=== PATIENT | female | born 1960 | race Caucasian/White ===

== ENCOUNTER 2018-02-19 12:00 | Outpatient (RCR) | payer BC, SELFPAY ==
--- NOTE | 2018-02-02 13:18 | HP.PTEVAL_ITS ---
Patient's Visit Information RACHELL VELASCO is a 57 year old F referred to Physical Therapy by Ck Baumann MD with a diagnosis of Facial palsy R sided. Date of Evaluation: 01/01/18 Physical Therapist: Julian Dunlap - Visit Plan Frequency: 2x /Week Duration: 6 Weeks Plan: Start with facial movements with increased repetitions. Add in direct current ES to increase muscle contraction of R side of facial musculature. Pt. given HEP to start. Pt. would like to start with HEP and follow up with PT if needed. - Subjective Subjective: Pt. is here today for her initial evaluation with diagnosis with facial palsy. Pt. reports starting to have issues at the beginning of the year. Pt. reports difficulty with closing her eye, raising her eye brow, smiling, slight problem with chewing on R side. Pt. reports draining for R eye at times, but has started using gel at night and eye drops during the day. Pt. reports that her symptoms have improved since initial onset, but slowly. Pt. saw her neurologist who recommended PT with etim and and MRI. Pt. reports no pain with any movements or with onset of symptoms. Pt. has trialed some massage to her R side of her face and did trial prednisone. Pt. has not trialed any exercises at this point in time. Pt. is hopeful to regain all movements with her face. - Objective POSTURE: Pt. has normal cervical spine posture. Pt. has normal facial positioning at rest. She has slight rounded shoulders and slight FH positioning. PALPATION: Pt. has no tenderness throughout neck, face, TMJ to palaption. NEUROLOGICAL: Pt. reports normal sensation to light and sharp touch throughout face and neck. Pt. has 2+ biceps and triceps DTR bilaterally. ROM: PT. has full neck ROM without changes of symptoms. Pt. has diffculty with smiling, lip elevation, eye brow elevation, eye opening and closing, lip puchering only on R side. Pt. does have muscle contraction, but not full motion when compared to L side. MMT: Pt. has marked muscle weakness in R side of facial musculature effecting her ability to smile, frown, close eye, nad open her mouth. - Goals Goal 1:: Pt. to be I with HEP. Goal Time Frame: 4-6 Weeks Goal 2:: Pt. to have symmetrical smile, mouth opening, frowning. Goal Time Frame: 4-6 Weeks Goal 3:: Pt. to have symmtrical eye closing and opening allowing for proper hydration of R eye. Goal Time Frame: 4-6 Weeks Goal 4:: Pt. to resume all activities without limitations. - Rehabilitation Potential Physical Therapy Diagnosis: Pt. has signs and symptoms consistent of R sided facial palsy. Pt. has no pain, but marked R sided facial weakness. Pt. would benefit from PT to increase muscle activation, and strength allowing for complete all of all facial movements. Rehabilitation Potential: Good - Anticipated Interventions Patient/Client Instruction: Educate patient on: Condition, Plan of Care, Risk Factors, Benefits of Fitness Program For the Purpose of:: To improve decision making, To facilitate caregiver knowledge, To improve self management, To prevent re-injury, To improve ability to perform tasks related to life management, To improve tolerance to ADL's Therapeutic Exercise to Include: Strength training, Body mechanics, Postural training, Flexibilty training For the Purpose of:: To decrease pain, To increase ROM, To improve nutrient delivery to tissue, To increase oxygenation perfusion, To improve muscle performance and motor function, To improve performance and independence with ADL 's, To improve health of tissue, To decrease soft tissue restriction Other electric stimulation: Yes - direct current For the Purpose of:: To decrease pain, To decrease swelling/inflammation, To improve muscle performance and motor function Thank you for the opportunity to evaluate your patient. For Medicare and Medicare HMO plans, please review the plan of care and approve it. It will need to be FAXED BACK to us at [phone] for Medicare purposes. Please let me know if there are questions or concerns regarding this plan of care. Physician Signature: Date:
--- NOTE | 2018-02-17 07:38 | HP.PTREVAL_ITS ---
Ck Baumann MD, It has been my pleasure to treat RACHELL VELASCO over the last 2 visits for Facial palsy R sided. Please see the progress note below for an update on the physical therapy plan of care! Subjective: Pt. reports being compliant with all of her facial exercises. Pt. reports minimal change with exercises and now wants to trial some of the muscle stim to see if this will assist with re activation of facial musculature. Objective/Function: Pt. tolerated alll PT. pt. had improved contraction with biofeed back this date,but minimal improvement post. Pt. reports no pain with trials. Plan Plan: Pt. to schedule more consistently to trial stim mroe often to determine if better outcome will occur. pt. consents. Goals Goal 1:: Pt. to be I with HEP. Goal Time Frame: 4-6 Weeks Goal Progress: Progressing Goal 2:: Pt. to have symmetrical smile, mouth opening, frowning. Goal Time Frame: 4-6 Weeks Goal Progress: Progressing Goal 3:: Pt. to have symmtrical eye closing and opening allowing for proper hydration of R eye. Goal Time Frame: 4-6 Weeks Goal Progress: Progressing Goal 4:: Pt. to resume all activities without limitations. Goal Progress: Progressing Anticipated Interventions Patient/Client Instruction: Educate patient on: Condition, Plan of Care, Risk Factors, Benefits of Fitness Program For the Purpose of:: To improve decision making, To facilitate caregiver knowledge, To improve self management, To prevent re-injury, To improve ability to perform tasks related to life management, To improve tolerance to ADL's Therapeutic Exercise to Include: Strength training, Body mechanics, Postural training, Flexibilty training For the Purpose of:: To decrease pain, To increase ROM, To improve nutrient delivery to tissue, To increase oxygenation perfusion, To improve muscle performance and motor function, To improve performance and independence with ADL 's, To improve health of tissue, To decrease soft tissue restriction Other electric stimulation: Yes - direct current For the Purpose of:: To decrease pain, To decrease swelling/inflammation, To improve muscle performance and motor function Please do not hesitate to contact me at [phone] by phone or Fax: if you have questions or concerns regarding this new plan of care! Sincerely, Julian Dunlap
--- NOTE | 2018-08-14 10:46 | HP.PT.NRP ---
HP - Discharge Summary (1) - Patient Information RACHELL VELASCO was seen in my office for initial evaluation on 01/01/18. The following Plan of Care was established for this patient: Initial Frequency: 2x /Week Initial Duration: 6 Weeks - Anticipated Interventions Patient/Client Instruction: Educate patient on: Condition, Plan of Care, Risk Factors, Benefits of Fitness Program For the Purpose of:: To improve decision making, To facilitate caregiver knowledge, To improve self management, To prevent re-injury, To improve ability to perform tasks related to life management, To improve tolerance to ADL's Therapeutic Exercise to Include: Strength training, Body mechanics, Postural training, Flexibilty training For the Purpose of:: To decrease pain, To increase ROM, To improve nutrient delivery to tissue, To increase oxygenation perfusion, To improve muscle performance and motor function, To improve performance and independence with ADL's, To improve health of tissue, To decrease soft tissue restriction Other electric stimulation: Yes - direct current For the Purpose of:: To decrease pain, To decrease swelling/inflammation, To improve muscle performance and motor function This patient was last seen in our office 02/19/18. Pertinent comments regarding their Physical therapy will appear below: Pt. was seen for her facial weakness after bells palsy. Pt. was seen for 3 visits and wanted to trial exercises on her own. Pt. has yet to return to PT and will be DC from PT at this point in time. At this point I will be discontinuing this patient from physical therapy. I would be happy to see this patient again in the future if found appropriate by the physician. Thank you! JING LaneT
== END 2018-02-19 19:00 | disposition home or self-care (01) ==
LOC: PT 12:00
PROVIDERS: Family Provider Family Medicine; PCP Family Medicine; Visit Provider Psychiatry & Neurology Neurology
DX: G51.0 Bell's palsy (principal)
CPT/HCPCS: 97110; 97112; 97162

== ENCOUNTER → 2020-03-03 12:11 | Outpatient (CLI) | payer BC, SELFPAY | PROVIDERS: PCP Family Medicine; Referring Provider Nurse Practitioner Family; Visit Provider Nurse Practitioner Family | DX: N89.8 Other specified noninflammatory disorders of vagina (principal) | CPT/HCPCS: 36415; 86695; 86696 ==

== ENCOUNTER → 2020-11-30 | Outpatient (CLI) | payer BC, SELFPAY ==
[2017-08-16 11:29] VITALS: BMI 41.7
== END | disposition home or self-care (01) ==
LOC: LABSPEC 10:32
PROVIDERS: PCP Family Medicine; Referring Provider Nurse Practitioner Family; Visit Provider Nurse Practitioner Family
DX: B37.3 Candidiasis of vulva and vagina (principal)

== ENCOUNTER → 2022-07-25 | Outpatient (CLI) | payer BC, SELFPAY | END | disposition home or self-care (01) | LOC: LABSPEC 09:56 | PROVIDERS: PCP Family Medicine; Referring Provider Nurse Practitioner Family; Visit Provider Nurse Practitioner Family | DX: A60.00 Herpesviral infection of urogenital system, unspecified (principal) | CPT/HCPCS: 87070; 87205 ==

== ENCOUNTER → 2022-09-06 | Outpatient (CLI) | payer BC, SELFPAY ==
[2022-09-12 17:36] LABS: HPV APTIMA, High Risk Negative (Negative)
== END | disposition home or self-care (01) ==
LOC: LABSPEC 14:38
PROVIDERS: PCP Family Medicine; Visit Provider Student in an Organized Health Care Education/Training Program
DX: Z12.4 Encounter for screening for malignant neoplasm of cervix (principal)
CPT/HCPCS: 87624; 88175; G0145

== ENCOUNTER 2022-10-01 18:23 | Emergency (ER) | payer BC, SELFPAY ==
[2022-10-01 18:24] VITALS: BP 203/87; PULSE 95; RESP 18; TEMP 36.6; O2SAT 100; BMI 59.5
[2022-10-01 18:51] VITALS: BP 134/93; PULSE 107; RESP 20; O2SAT 96
--- NOTE | 2022-10-01 19:36 | EDS_ITS ---
HPI History of Present Illness Chief Complaint: General Illness Informant: patient Onset/Context/Timing Onset: Hours (2) Context: Gradual Onset Timing: Continuous Quality: Lightheaded Location: Generalized Worsened by: Nothing Relieved by: Nothing Narrative Narrative: Patient presents with chest pain and lightheadedness that began approximately 2 hours prior to arrival. Patient states it came on gradually. Patient states she feels lightheaded all over. Patient states that she has a dull pain in her chest. Patient states nothing makes it better nothing makes it worse. Patient denies any nausea or vomiting. Patient denies any fevers or chills. Patient denies any shortness of breath or cough. Patient denies any diaphoresis. Patient denies any palpitations. [facility] Medical History Hypertension Home Medications ibuprofen 100 mg tablet (Advil) PO 08/16/17 [History Last Taken Unknown] acyclovir 800 mg tablet 800 mg PO TID 10/01/22 [History Last Taken Unknown] Allergy/AdvReac Type Severity Reaction Status Date / Time sulfamethoxazole Allergy Severe Unknown Verified 10/01/22 18:23 [From Bactrim] trimethoprim [From Bactrim] Allergy Severe Unknown Verified 10/01/22 18:23 Social History Smoking Status: Never smoker ROS ROS ED Constitutional Constitutional ED: Denies chills or fever(s) Eyes Eyes: Denies blurry vision or change in vision ENT ENT ED: Denies rhinorrhea or sore throat Cardiovascular Cardiovascular: Reports chest pain; Denies palpitations Respiratory/Chest Respiratory/Chest: Denies cough or dyspnea Gastrointestinal Gastrointestinal: Denies nausea or vomiting Genitourinary Genitourinary ED: Denies dysuria or hematuria Musculoskeletal Musculoskeletal: Reports back pain; Denies neck pain Integumentary Denies abscess or rash Neurologic Neurologic: Denies headache(s) or weakness Allergic/Immunologic Allergic/Immunologic ED: Denies mouth swelling or urticaria EXAM Physical Exam Const Vital Signs: 10/01/22 18:24 10/01/22 18:51 10/01/22 19:52 Temperature 97.8 F Temperature Source Temporal Pulse Rate 95 107 H Respiratory Rate 18 20 H Blood Pressure 203/87 H 134/93 H Blood Pressure Mean 125 106 Pulse Ox 100 96 Oxygen Delivery Method Room Air Room Air Room Air 10/01/22 21:16 Temperature Temperature Source Pulse Rate 76 Respiratory Rate 18 Blood Pressure 148/77 H Blood Pressure Mean 100 Pulse Ox 95 Oxygen Delivery Method Room Air Positive well nourished, well developed and obese General Appearance ED: well developed and NAD Nutritional Appearance: obese HEENT Reports moist mucous membranes Neck supple and no JVD Resp normal respiratory effort and clear to auscultation bilaterally Cardio regular rate, regular rhythm and no murmurs GI normal to inspection, nondistended, normoactive bowel sounds and non-tender Palpation: soft Extremity normal to inspection General Extremety ED: Negative for edema or tenderness General Extremity: Negative for edema Neuro oriented x3, CN's II-XII intact bilaterally and no sensory deficits noted Sensorium / Orientation: alert Motor Exam: strength 5/5 throughout Psych mental status grossly normal Skin no rashes or lesions noted MDM MDM MDM Narrative Medical decision making narrative: Differential diagnosis includes cardiac ischemia, cardiac dysrhythmia, pneumonia, pneumothorax, infection, dehydration, electrolyte abnormality, and pulmonary embolus. EKG will be obtained to assess for cardiac dysrhythmia and cardiac ischemia. CBC will be obtained to assess for leukocytosis and anemia. Basic metabolic profile will be obtained to assess for electrolyte abnormality and renal function. High-sensitivity troponin will be obtained to assess for cardiac ischemia. 2-hour repeat high-sensitivity troponin will be obtained to further assess cardiac ischemia. D-dimer will be obtained to assess for pulmonary embolism. Chest x-ray will be obtained to assess for pneumonia, cardiomegaly, and congestive heart failure. Lab Data Lab results narrative: CBC was reviewed and there is a slight leukocytosis of 11.8. Basic metabolic profile was reviewed and showed a mild hypokalemia of 3.3. BUN was slightly elevated at 23. Glucose was 170. High-sensitivity troponin was reviewed and was normal at 8. D-dimer was reviewed and was normal at 0.46. 2-hour repeat high-sensitivity troponin was reviewed and was normal at 12. Labs: Laboratory Results - last 24 hr 10/01/22 10/01/22 10/01/22 19:50 19:50 19:50 WBC 11.8 H RBC 4.32 Hgb 12.5 Hct 40.9 MCV 94.7 MCH 28.9 MCHC 30.6 L RDW Std Deviation 49.1 H RDW Coeff of Chao 14.0 Plt Count 425 MPV 11.4 Immature Gran % (Auto) 0.500 Neut % (Auto) 65.9 Lymph % (Auto) 24.3 [place] % (Auto) 6.8 Eos % (Auto) 2.0 Baso % (Auto) 0.5 Absolute Neuts (auto) 7.8 H Absolute Lymphs (auto) 2.87 Nucleated RBC % 0 D-Dimer Quant (PE/DVT) 0.46 Sodium 140 Potassium 3.3 L Chloride 102 Carbon Dioxide 28.0 Anion Gap 10 BUN 23 H Creatinine 0.70 Estim Creat Clear Calc 166.19 Est GFR (MDRD) Af Amer 110 Est GFR (MDRD) Non-Af 91 BUN/Creatinine Ratio 33.0 H Glucose 170 H Calcium 9.5 Troponin I High Sens 8 10/01/22 22:00 WBC RBC Hgb Hct MCV MCH MCHC RDW Std Deviation RDW Coeff of Chao Plt Count MPV Immature Gran % (Auto) Neut % (Auto) Lymph % (Auto) [place] % (Auto) Eos % (Auto) Baso % (Auto) Absolute Neuts (auto) Absolute Lymphs (auto) Nucleated RBC % D-Dimer Quant (PE/DVT) Sodium Potassium Chloride Carbon Dioxide Anion Gap BUN Creatinine Estim Creat Clear Calc Est GFR (MDRD) Af Amer Est GFR (MDRD) Non-Af BUN/Creatinine Ratio Glucose Calcium Troponin I High Sens 12 Radiography Diagnostic Testing: Clinical Impression(s) from Imaging Studies Chest X-Ray 10/01/22 19:58 IMPRESSION: 1. No evidence of acute cardiopulmonary process sequelae of old granulomatous disease present. Electronically Signed: Khoa Watts MD at 20:10 EST , Portable 1 view chest x-ray was obtained. On my independent interpretation, lung oconnor are clear. There is normal cardiac silhouette. Bony thorax is normal. There is no acute process noted. Radiologist also interpreted the x- ray and agrees. EKG Initial EKG: Attestation: I personally reviewed and interpreted this EKG as follows: Interpretation: Sinus Rhythm (96) and Non-Specific ST Changes Comments: EKG was obtained. On my interpretation, it showed a normal sinus rhythm with a rate of 96. VA interval, QRS interval, and QTc intervals were all normal. [place] was normal. There are no acute ST or T wave changes. Prior EKG tracings: not available for review Prior: No Prior Treatment and Re-Evaluation Narrative: Patient was given a dose of aspirin here. Patient was advised of her findings. Patient is feeling better on reevaluation. Patient has a HEART score of 3. Patient was advised that this is low risk for acute cardiac event. Patient was instructed to follow-up with her primary care physician in 5 to 7 days for reevaluation. Patient was instructed return if worse in any way. Patient understood and was agreeable with the plan. All questions were answered. Discharge Plan Triage Chief Complaint: General Illness ED Provider: Luis Felipe Fischer Dx/Rx/DC Orders Clinical Impression: Chest pain, Lightheadedness Instructions: ED Chest Pain, Uncertain Cause Prescriptions: No Action ibuprofen 100 mg tablet 100 mg tablet PO acyclovir 800 mg tablet 800 mg PO TID Primary Care Provider: Casandra Parker Referrals: Casandra Parker MD [Primary Care Provider] - 5-7 Days Disposition Disposition: Home, Self Care
--- NOTE | 2022-10-01 19:42 | EKG12_ITS ---
Test Reason : DYSRHYTHMIA Blood Pressure : / mmHG Vent. Rate : 096 BPM Atrial Rate : 096 BPM P-R Int : 126 ms QRS Dur : 100 ms QT Int : 362 ms P-R-T Axes : 057 045 039 degrees QTc Int : 457 ms Normal sinus rhythm Nonspecific ST abnormality Abnormal ECG Confirmed by MANA RICHARDS, DAWIT ([id number]), sports editor MARIA L CARRERO ([id number]) on 10/02/2022 1:49:31 PM Referred By: COURTNEY Confirmed By:DAWIT ADAIR MD
[2022-10-01] MEDS: Aspirin 81 MG TAB.CHEW 324 MG PO (19:47)
[2022-10-01 19:58] LABS: Absolute Lymphocyte Count 2.87 X10^3/uL (0.83-4.51); Absolute Neutrophil Count 7.8 X10^3/uL (2.0-7.7); Basophil# 0.06 X10^3/uL; Basophil% 0.5 % (0-1); Eosinophil# 0.23 X10^3/uL; Hematocrit 40.9 % (37-47); Hemoglobin 12.5 g/dL (12.0-15.0); Lymphocyte # 2.87 X10^3/ul (0.83-4.51); Lymphocyte % 24.3 % (19-41); Mean Corp Hgb Conc 30.6 g/dL (32-36); Mean Corpuscular Hgb 28.9 pg (27.0-32.0); Mean Corpuscular Volume 94.7 fL (81-99); Mean Platelet Vol. 11.4 fl (6.2-12.0); Monocyte% 6.8 % (0-10); NRBC Flagged by Analyzer 0 % (0-5); Neutrophil # 7.77 X10^3/uL (2.7-7.7); Neutrophil % 65.9 % (47-70); Platelet Count 425 K/mm3 (150-450); RBC Distribution Width SD 49.1 fl (35.1-43.9); Red Blood Count 4.32 M/mm3 (4.2-5.4); White Blood Count 11.8 K/mm3 (4.4-11.0)
--- NOTE | 2022-10-01 19:58 | RAD_ITS ---
INDICATION: chest pain EXAMINATION/TECHNIQUE: X-RAY - XR Chest 1 View COMPARISON: No previous relevant examinations available for comparison.. FINDINGS: LIFE-SUPPORT AND LINES: 1. None HEART AND VESSELS: The cardiac silhouette, pulmonary vasculature have normal appearance. No evidence of congestive failure. LUNGS AND PLEURAL SPACES: Lungs are clear. No focal infiltrate, consolidation or effusions. No evidence of pneumothorax. There is a pulmonary nodule/granuloma in the RIGHT upper lobe measuring approximately 8 mm. MEDIASTINUM AND HILAR REGIONS: No masses adenopathy noted. No areas of calcification. Visualized upper airway is normal in position. BONY ELEMENTS: No acute bony changes noted. RAD/Chest 1 View (Portable) IMPRESSION: 1. No evidence of acute cardiopulmonary process sequelae of old granulomatous disease present. Electronically Signed: Khoa Watts MD at 20:10 EST ,
[2022-10-01 20:22] LABS: Anion Gap 10 (5-15); BUN 23 mg/dL (7-18); Calcium,Total 9.5 mg/dL (8.5-10.1); Chloride 102 mmol/L (98-107); EST Glomerular Filtration Rate 91 mL/min (>60); Est Glom Filt Rate - Afr Amer 110 mL/min (>60); Estimated Creatinine Clearance 166.19 ml/min; Glucose 170 mg/dL (74-106); Potassium 3.3 mmol/L (3.5-5.1); Sodium Level 140 mmol/L (136-145); Troponin-I HS (w/2H Reflex) 8 pg/mL (3.0-54.0)
[2022-10-01 20:27] LABS: D-Dimer Quantitative (DVT/PE) 0.46 FEU/ug/m (0.27-0.49)
[2022-10-01 21:16] VITALS: BP 148/77; PULSE 76; RESP 18; O2SAT 95
[2022-10-01 21:54] LABS: Reflex Troponin-HS? (from REC) Y
[2022-10-01 22:38] LABS: Troponin-I HS 12 pg/mL (3.0-54.0)
[2022-10-01 23:45] VITALS: BP 129/82; PULSE 72; RESP 16; O2SAT 97
== END 2022-10-01 23:49 | disposition home or self-care (01) ==
PROVIDERS: Emergency Provider Emergency Medicine; PCP Family Medicine; Visit Provider Emergency Medicine
DX: R07.9 Chest pain, unspecified (principal); R42 Dizziness and giddiness; I10 Essential (primary) hypertension; E66.9 Obesity, unspecified
CPT/HCPCS: 71045; 80048; 84484; 85025; 85379; 93005; 99283; A4216

== ENCOUNTER → 2023-06-11 | Outpatient (CLI) | payer BC, SELFPAY ==
--- NOTE | 2023-06-11 13:55 | BI_ITS ---
MAMMOGRAPHY - BILATERAL SCREENING REASON FOR EXAM: Female, 62 years old. Routine annual screening examination. PERTINENT HISTORY: Non-contributory. TECHNIQUE: Digital bilateral breast elizabeth (3D mammographic acquisition) in the CC and MLO projections. 2-D mediolateral oblique (MLO) and craniocaudad (CC) views of both breasts were obtained. CAD: Full Field Digital Mammography with Computer Added Detection was performed. COMPARISON: None. Baseline examination. FINDINGS: Breast Composition: There are scattered areas of fibroglandular density. There are no dominant masses or suspicious calcifications. Benign appearing bilateral axillary lymph nodes. No other significant abnormalities are identified. BI/SCRN MAMM (CAD)W/ELIZABETH BILAT IMPRESSION: Negative screening mammogram. Yearly followup mammogram recommended. (A) ASSESSMENT CATEGORY: BIRADS Category 2: Benign. A letter regarding these results will be sent to the patient by the facility within 30 days. Approximately 10% of breast cancers are not detected by mammography. A normal mammogram should not delay biopsy of a clinically suspicious abnormality. [id number] Electronically Signed: Selwyn Linares MD at 14:46 EDT ,
== END | disposition home or self-care (01) ==
LOC: OPBI 13:54
PROVIDERS: PCP Family Medicine; Referring Provider Family Medicine; Visit Provider Family Medicine
DX: Z12.31 Encounter for screening mammogram for malignant neoplasm of breast (principal)
CPT/HCPCS: 77063; 77067

== ENCOUNTER → 2023-11-26 | Outpatient (CLI) | payer BC, SELFPAY ==
[2023-11-26 17:46] LABS: Absolute Lymphocyte Count 2.63 X10^3/uL (0.83-4.51); Absolute Neutrophil Count 8.4 X10^3/uL (2.0-7.7); Basophil# 0.04 X10^3/uL; Basophil% 0.3 % (0-1); Eosinophil# 0.15 X10^3/uL; Eosinophils% 1.2 % (0-5); Hematocrit 38.4 % (37-47); Hemoglobin 11.9 g/dL (12.0-15.0); Lymphocyte # 2.63 X10^3/ul (0.83-4.51); Lymphocyte % 21.8 % (19-41); Mean Corpuscular Hgb 28.5 pg (27.0-32.0); Mean Corpuscular Volume 91.9 fL (81-99); Mean Platelet Vol. 10.6 fl (6.2-12.0); Monocyte# 0.82 X10^3/uL; Monocyte% 6.8 % (0-10); NRBC Flagged by Analyzer 0 % (0-5); Neutrophil # 8.39 X10^3/uL (2.7-7.7); Neutrophil % 69.4 % (47-70); Platelet Count 396 K/mm3 (150-450); RBC Distribution Width CV 14.2 % (11.6-14.6); RBC Distribution Width SD 47.6 fl (35.1-43.9); Red Blood Count 4.18 M/mm3 (4.2-5.4); White Blood Count 12.1 K/mm3 (4.4-11.0)
[2023-11-26 18:23] LABS: Albumin, Serum 3.5 g/dL (3.2-5.0); Anion Gap 5 (5-15); BUN 27 mg/dL (7-18); BUN/Creat Ratio 34.1 RATIO (10-20); Calcium,Total 9.4 mg/dL (8.5-10.1); Chloride 105 mmol/L (98-107); Creatinine, Serum 0.79 mg/dL (0.55-1.02); EST Glomerular Filtration Rate 78 mL/min (>60); Est Glom Filt Rate - Afr Amer 95 mL/min (>60); Glucose 101 mg/dL (74-106); Potassium 3.4 mmol/L (3.5-5.1); Sodium Level 138 mmol/L (136-145)
[2023-11-26 18:49] LABS: Hemoglobin A1c 5.9 % (3.8-5.6)
== END | disposition home or self-care (01) ==
LOC: MTLAB 16:14
PROVIDERS: PCP Family Medicine; Referring Provider Physician Assistant Surgical; Visit Provider Physician Assistant Surgical
DX: M21.161 Varus deformity, not elsewhere classified, right knee (principal)
CPT/HCPCS: 36415; 80048; 82040; 83036; 85025

== ENCOUNTER → 2023-12-08 | Outpatient (CLI) | payer BC, SELFPAY ==
--- NOTE | 2023-12-08 13:13 | STRESSREP ---
Stress Test Report Date: 12/08/2023 Procedure: Pharmacologic stress nuclear imaging study Indications: Preop evaluation, abnormal EKG Consent: Per the patient Procedure: The patient underwent pharmacologic (Regadenoson) evaluation with a peak heart rate of 108 beats per minute (68%predicted maximal heart rate) and a peak blood pressure of 144/90 mmHg. The baseline ECG demonstrated normal sinus rhythm. EKG during lexiscan infusion revealed no significant ischemic changes. EKG post infusion revealed no significant ischemic changes [There were no cardiac dysrhythmias pretest, during pharmacologic infusion, or recovery]. [There was no complaint of chest discomfort during pharmacologic infusion or recovery]. The examination was discontinued secondary to completion of protocol. Impression: 1. Lexiscan stress test test is negative for Lexiscan infusion induced EKG changes of ischemia. 2. Lexiscan stress test test is negative for Lexiscan infusion induced chest pain. 3. Results of the nuclear portion of the test is as below Myocardial perfusion imaging study: Technique: The patient was injected with 15 millicuries of technetium 99m Cardiolite and subsequently rest SPECT Cardiolite nuclear imaging was obtained in the horizontal long, vertical long, and short axis views. The patient underwent pharmacologic [Regadenoson 0.4mg] evaluation. Please see above for details. The patient was injected with 45 millicuries of technetium 99m Cardiolite and subsequently stress SPECT Cardiolite nuclear imaging was obtained in the horizontal long, vertical long, and short axis views. A gated Cardiolite study at peak stress was obtained. Interpretation: Rest and stress SPECT Cardiolite nuclear imaging status post realignment, normalization, and attenuation correction demonstrate normal radioisotope uptake at rest. On the stress images there is mild decrease in the radioisotope uptake in the anterior wall. Mild anterior ischemia cannot be excluded. Gated images reveal no significant regional wall motion abnormalities. The reported LVEF is 66%. Impression: 1. Mild anterior ischemia cannot be excluded. 2. Estimated ejection fraction is 66%. This note was generated with Reelationation software. It may contain incorrect words, spelling, and punctuation that were not noted in checking the note before signing.
== END | disposition home or self-care (01) ==
LOC: CVS 06:16
PROVIDERS: PCP Family Medicine; Referring Provider Family Medicine; Visit Provider Family Medicine
DX: R94.31 Abnormal electrocardiogram [ECG] [EKG] (principal)
CPT/HCPCS: 78452; 93017; A9500; A4216; J2785

== ENCOUNTER 2023-12-10 04:18 | Emergency (ER) | payer BC, SELFPAY ==
--- NOTE | 2023-12-10 06:46 | EDS_ITS ---
HPI History of Present Illness Informant: patient and spouse/S.O. Narrative Narrative: 63-year-old female got up out of bed this morning and was suddenly dizzy, feeling like the room was spinning. She sat still and the symptoms slowly resolved. She went to the bathroom and then at another point time she turned her head and she had another episode of the symptoms, and after the third episode they presented to the ER around 4:30 AM. She denies any recent inju carole. No earache, tinnitus, recent URI, she states she has never had this before. She fell like she was going to fall. She vomited once. 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 She has a history of bilateral knee arthritis and is trying to get knee replacements done, so underwent some medical clearance testing recently including an EKG, CT of the chest, and a cardiac stress test. She does not know the results yet. [facility] Medical History (Updated 12/10/23 @ 07:[address] Bernabe Dhillon MD) Arthritis of both knees Hypertension Home Medications ibuprofen 100 mg tablet (Advil) PO 08/16/17 [History Last Taken Unknown] acyclovir 800 mg tablet 800 mg PO TID 10/01/22 [History Last Taken Unknown] meclizine 25 mg tablet 25 mg PO Q8H PRN PRN Dizziness #20 tabs 12/10/23 [Rx Last Taken Unknown] Allergy/AdvReac Type Severity Reaction Status Date / Time sulfamethoxazole Allergy Severe Unknown Verified 10/01/22 18:23 [From Bactrim] trimethoprim [From Bactrim] Allergy Severe Unknown Verified 10/01/22 18:23 Social History Smoking Status: Never smoker ROS ROS ED Constitutional Constitutional ED: Denies chills or fever(s) Eyes Eyes: Denies change in vision or diplopia ENT ENT ED: Reports as per HPI and vertigo; Denies rhinorrhea or sore throat Cardiovascular Cardiovascular: Denies chest pain or palpitations Respiratory/Chest Respiratory/Chest: Denies cough or dyspnea Gastrointestinal Gastrointestinal: Reports nausea and vomiting; Denies abdominal pain or diarrhea Genitourinary Genitourinary ED: Denies dysuria or hematuria Musculoskeletal Musculoskeletal: Reports other Details: chronic bilat knee pain ; Denies back pain or neck pain Integumentary Denies abscess or rash Neurologic Neurologic: Denies headache(s), paresthesias or weakness Psychiatric Psychiatric: Denies anxiety or suicidal thoughts EXAM Physical Exam Const Positive well nourished, well developed and obese General Appearance ED: well developed and NAD Nutritional Appearance: obese HEENT Reports TM's clear and moist mucous membranes normocephalic and atraumatic Tympanic Membrane ED: Yes TM's clear Eyes PERRL and EOMs intact bilaterally Eyes Narrative: No pathologic nystagmus Neck full ROM and supple Resp normal respiratory effort and clear to auscultation bilaterally Cardio regular rate, regular rhythm and no murmurs GI non-tender and non-distended Auscultation: normoactive bowel sounds Palpation: soft Back/Spine no CVA tenderness General Back: other FROM Extremity normal to inspection General Extremety ED: Negative for edema, pulses abnormal or tenderness General Extremity: Negative for edema or pulses abnormal Neuro oriented x3, CN's II-XII intact bilaterally and no sensory deficits noted Sensorium / Orientation: awake and alert Motor Exam: strength 5/5 throughout Skin no rashes or lesions noted and no wounds MDM MDM MDM Narrative Medical decision making narrative: Neurologic exam is normal. I am not able to perform a Toya-Hallpike because the patient cannot lay back, she states it makes her feel claustrophobic/anxious and this is a chronic issue nothing new. She does not have vertiginous symptoms right now, so performing jolt test would not be helpful. She has a benign exam, normal [id number] and [id number] bilaterally, vital signs are noted she is a little hypertensive but not excessively so, 158/80's. My suspicion is that this is peripheral vertigo given the nature of the history, will be given a meclizine and a prescription for more to use as needed and follow-up with ENT if symptoms do not self-resolved. Lab Data Attestation: I reviewed the patient's lab results. Rhythm Strip Rhythm Strip: Sinus Rhythm Rate: 90 Ectopy: None Discharge Plan Triage ED Provider: Bernabe Dhillon Dx/Rx/DC Orders Clinical Impression: Episodic peripheral vertigo Prescriptions: New meclizine [meclizine] 25 mg tablet 25 mg PO Q8H PRN PRN (Reason: Dizziness) Qty: 20 0RF No Action ibuprofen 100 mg tablet 100 mg tablet PO acyclovir 800 mg tablet 800 mg PO TID Primary Care Provider: Casandra Parker Activity Restrictions/Additional Instructions: (Printed and written discharge instructions and referral given to the patient during EMR downtime) Disposition Disposition: Home, Self Care Discharge Date/Time: 12/10/23 05:20
== END 2023-12-10 05:20 | disposition home or self-care (01) ==
LOC: ED 06:11
PROVIDERS: Emergency Provider Emergency Medicine; PCP Family Medicine; Visit Provider Emergency Medicine
DX: H81.399 Other peripheral vertigo, unspecified ear (principal); R11.2 Nausea with vomiting, unspecified; B00.9 Herpesviral infection, unspecified; M17.0 Bilateral primary osteoarthritis of knee; I10 Essential (primary) hypertension; Z79.899 Other long term (current) drug therapy

== ENCOUNTER → 2023-12-17 | Outpatient (CLI) | payer BC, SELFPAY ==
--- NOTE | 2023-12-17 14:53 | RAD_ITS ---
STUDY: X-RAY CHEST REASON FOR EXAM: Female, 63 years old. Coronary artery disease. TECHNIQUE: Frontal and lateral views of the chest. COMPARISON: None. FINDINGS: The lungs are clear and expanded. Scattered healed parenchymal granulomatous calcifications. There is no demonstrated pleural abnormality. Cardiomegaly. Normal mediastinum and tessa. Normal visualized pulmonary arteries. Aortic tortuosity and calcification. Thoracic osteopenia with diffuse mild thoracic spondylosis. Normal visualized ribs, clavicles, and shoulders. No abnormality of the visualized soft tissue structures of the upper abdomen. RAD/Chest PA and Lateral IMPRESSION: Cardiomegaly with no acute or active cardiopulmonary disease. Electronically Signed: Jt Goddard MD at 15:23 EDT ,
[2023-12-17 16:06] LABS: Absolute Lymphocyte Count 2.25 X10^3/uL (0.83-4.51); Absolute Neutrophil Count 7.5 X10^3/uL (2.0-7.7); Basophil# 0.06 X10^3/uL; Basophil% 0.6 % (0-1); Eosinophil# 0.14 X10^3/uL; Eosinophils% 1.3 % (0-5); Hematocrit 37.7 % (37-47); Hemoglobin 11.5 g/dL (12.0-15.0); Lymphocyte # 2.25 X10^3/ul (0.83-4.51); Lymphocyte % 20.8 % (19-41); Mean Corp Hgb Conc 30.5 g/dL (32-36); Mean Corpuscular Hgb 27.9 pg (27.0-32.0); Mean Corpuscular Volume 91.5 fL (81-99); Mean Platelet Vol. 10.5 fl (6.2-12.0); Monocyte# 0.78 X10^3/uL; Monocyte% 7.2 % (0-10); NRBC Flagged by Analyzer 0 % (0-5); Neutrophil # 7.54 X10^3/uL (2.7-7.7); Neutrophil % 69.5 % (47-70); Platelet Count 349 K/mm3 (150-450); RBC Distribution Width CV 14.5 % (11.6-14.6); RBC Distribution Width SD 48.1 fl (35.1-43.9); Red Blood Count 4.12 M/mm3 (4.2-5.4); White Blood Count 10.8 K/mm3 (4.4-11.0)
[2023-12-17 16:30] LABS: Anion Gap 5 (5-15); BUN 25 mg/dL (7-18); BUN/Creat Ratio 30.5 RATIO (10-20); Calcium,Total 9.3 mg/dL (8.5-10.1); Chloride 107 mmol/L (98-107); Creatinine, Serum 0.82 mg/dL (0.55-1.02); EST Glomerular Filtration Rate 75 mL/min (>60); Est Glom Filt Rate - Afr Amer 91 mL/min (>60); Glucose 110 mg/dL (74-106); Sodium Level 139 mmol/L (136-145)
== END | disposition home or self-care (01) ==
LOC: RAD 14:52
PROVIDERS: PCP Family Medicine; Referring Provider Internal Medicine Cardiovascular Disease; Visit Provider Internal Medicine Cardiovascular Disease
DX: R94.39 Abnormal result of other cardiovascular function study (principal); I25.10 Atherosclerotic heart disease of native coronary artery without angina pectoris
CPT/HCPCS: 36415; 71046; 80048; 85025

== ENCOUNTER 2023-12-25 09:34 | Day surgery (SDC) | payer BC, SELFPAY ==
[2023-12-24 12:46] VITALS: BMI 47.1
--- NOTE | 2023-12-25 12:52 | CL.D_ITS ---
Patient Name: RACHELL VELASCO Study Date: 12/25/2023 Performing: Cl Orr MD Ht: 57 inches 144.78 cm : 1960 Wt: 217.99 lbs 98.88 kg Age: 63 Gender: female BSA: 1.87 PROCEDURE(S) PERFORMED DC01-(64719)LHC/COR/LV CLINICAL PROFILE AND INDICATIONS Indications: Suspected CAD Heart Failure: None Stress/Imaging Date: 12/10/23Stress Test with SPECT MPI: Positive Low Risk CAD Presentations: Symptom unlikely to be ischemic. CONCLUSIONS Normal coronary arteries Normal LV size, wall motion,and systolic function RECOMMENDATIONS Medical therapy DESCRIPTION OF PROCEDURE The patient arrived to the procedure lab. The risks and benefits of the procedure as well as a full description of our services here and current unavailability of surgical backup were fully explained to the patient and/or their significant other prior to the catheterization. The Timeout was completed, verifying the correct patient and procedure. The patient's procedural site was prepped and draped in the usual fashion. Local anesthetic was given subcutaneously to right radial region with Lidocaine 2%. Using a modified Seldinger technique, arterial access was obtained via the right radial artery, a 6Fr sheath was inserted. Right Coronary Artery selective angiography was then performed in multiple views using a 5 Fr. 4.0 Austin catheter. Left Coronary Artery selective angiography was performed in multiple views using a 5 Fr. 4.0 Austin catheter. Left Ventriculography was performed in ARNETT projection using a 5 Fr. Pigtail catheter. LV to AO pullback pressures were then recorded.The arterial sheath was pulled and a TR Band was applied for hemostasis w/ 10ml air CORONARY ANGIOGRAPHY DOMINANCE: Right Dominant LEFT HEART ASSESSMENT Left Ventricular Ejection Fraction: by LV Gram 60 % Normal LV wall motion Normal Left Ventricular systolic function Normal Left Ventricular systolic function LEFT MAIN: Angiographically normal LEFT ANTERIOR DESCENDING ARTERY: Angiographically normal CIRCUMFLEX ARTERY: Angiographically normal RIGHT CORONARY ARTERY: Angiographically normal COMPLICATIONS No Complications PROCEDURE MEDICATIONS Versed 1 mg IV Fentanyl 50 mcg IV Versed 1 mg IV Oxygen: 2 L/min via nasal cannula Heparin given IA 12/25/2023 12:35:03 Verapamil 2.5mg, Ntg 100mcgs, 3000 units of Heparin given IA 12/25/2023 12:35:03 SUMMARY OF HEMODYNAMIC DATA Time AIR REST ECG 09:51:50 AO 136/85 (109) SA 12:36:53 LV 118/12, 22 12:43:03 LV 126/15, 19 12:43:12 LV 141/26, 48 12:43:43 LV 138/14, 19 12:43:52 LVp 139/15, 21 12:43:56 AOp 141/64 (102) 12:44:03 Signed By Cl Orr MD On 12/25/2023 12:51:44 Cl Orr MD
== END 2023-12-25 14:41 | disposition home or self-care (01) ==
LOC: CLSP 09:35
PROVIDERS: PCP Family Medicine; Referring Provider Internal Medicine Cardiovascular Disease; Visit Provider Internal Medicine Cardiovascular Disease
DX: R94.39 Abnormal result of other cardiovascular function study (principal); I10 Essential (primary) hypertension; Z79.899 Other long term (current) drug therapy; Z79.82 Long term (current) use of aspirin; R94.31 Abnormal electrocardiogram [ECG] [EKG]
CPT/HCPCS: 93458; 99152; 99153; J7040; C1769; C1894; Q9967

== ENCOUNTER → 2024-01-26 | Outpatient (CLI) | payer BC, SELFPAY ==
--- NOTE | 2024-01-26 14:12 | CT_ITS ---
PROCEDURE: CT RIGHT KNEE WITHOUT CONTRAST REASON FOR EXAM: Female, 63 years old. Preoperative planning for the MakoPlasty Robotic knee surgery. Knee pain. TECHNIQUE: Transaxial CT of the hip, knee and ankle were obtained. Coronal and sagittal reconstruction images of the knee were provided. Individualized dose optimization techniques were used for this CT. COMPARISON: None. FINDINGS: Standard protocol for the preoperative planning for the MakoPlasty robotic knee surgery was performed. Osteopenia with moderate to marked arthrosis of the right hip, moderate to severe arthrosis of the right knee and mild arthrosis of the tibiotalar and subtalar joints with calcaneal spurs. CT/Extremity Lower without Contra IMPRESSION: Preoperative MakoPlasty Robotic knee surgical CT evaluation with findings as described above. Electronically Signed: Jt Goddard MD at 15:06 EDT ,
== END | disposition home or self-care (01) ==
PROVIDERS: PCP Family Medicine; Referring Provider Student in an Organized Health Care Education/Training Program; Visit Provider Student in an Organized Health Care Education/Training Program
DX: M17.11 Unilateral primary osteoarthritis, right knee (principal)
CPT/HCPCS: 73700

== ENCOUNTER 2024-02-12 12:07 | Observation (INO) | payer BC, SELFPAY ==
[2024-01-26 16:43] LABS: Albumin, Serum 3.4 g/dL (3.2-5.0); Magnesium 2.2 mg/dL (1.6-2.6)
[2024-01-26 16:58] LABS: Hemoglobin A1c 5.7 % (3.8-5.6)
[2024-02-04 18:04] LABS: Absolute Lymphocyte Count 2.36 X10^3/uL (0.83-4.51); Absolute Neutrophil Count 8.3 X10^3/uL (2.0-7.7); Basophil# 0.06 X10^3/uL; Basophil% 0.5 % (0-1); Eosinophil# 0.17 X10^3/uL; Eosinophils% 1.4 % (0-5); Hematocrit 38.1 % (37-47); Hemoglobin 11.7 g/dL (12.0-15.0); Lymphocyte # 2.36 X10^3/ul (0.83-4.51); Mean Corp Hgb Conc 30.7 g/dL (32-36); Mean Corpuscular Hgb 28.9 pg (27.0-32.0); Mean Corpuscular Volume 94.1 fL (81-99); Mean Platelet Vol. 11.1 fl (6.2-12.0); Monocyte# 0.87 X10^3/uL; Monocyte% 7.4 % (0-10); NRBC Flagged by Analyzer 0 % (0-5); Neutrophil # 8.29 X10^3/uL (2.7-7.7); Neutrophil % 70.4 % (47-70); Platelet Count 414 K/mm3 (150-450); RBC Distribution Width CV 14.6 % (11.6-14.6); RBC Distribution Width SD 50.7 fl (35.1-43.9); Red Blood Count 4.05 M/mm3 (4.2-5.4); White Blood Count 11.8 K/mm3 (4.4-11.0)
[2024-02-04 18:23] LABS: Anion Gap 8 (5-15); BUN 22 mg/dL (7-18); BUN/Creat Ratio 30.3 RATIO (10-20); Calcium,Total 9.7 mg/dL (8.5-10.1); Chloride 105 mmol/L (98-107); Creatinine, Serum 0.73 mg/dL (0.55-1.02); EST Glomerular Filtration Rate 86 mL/min (>60); Est Glom Filt Rate - Afr Amer 104 mL/min (>60); Glucose 84 mg/dL (74-106); Potassium 3.6 mmol/L (3.5-5.1); Sodium Level 140 mmol/L (136-145)
[2024-02-12] VITALS (21 sets, daily range): BP systolic 104–157; BP diastolic 47–82; PULSE 58–102; RESP 16–18; TEMP 36.2–36.7; O2SAT 85–98; BMI 46.7; BMI 50.9
[2024-02-12] MEDS: Celecoxib 200 MG Capsule 400 MG PO (06:26)
[2024-02-12] MEDS: Gabapentin 600 MG Tablet PO (06:26)
[2024-02-12] MEDS: Lactated Ringers 1,000 ML 999 ML IV ×2 (06:27→10:15)
[2024-02-12] MEDS: Acetaminophen 500 MG Tablet 1000 MG PO ×3 (06:27→21:16)
[2024-02-12] MEDS: Magnesium 1 GM over 15 mins IV (06:27)
[2024-02-12 06:32] LABS: Bedside Glucose 116 mg/dL (74-106)
[2024-02-12] MEDS: Cefazolin 2 GM in 0.9% Normal Saline (100mL Bag) 100 ML IV (07:29)
--- NOTE | 2024-02-12 07:29 | PRE.ANES_ITS ---
ASA Classification* ASA Classification ASA Classification: 2 and 3 Assessment & Plan Anesthesia* Anesthesia Assessment Anesthesia Assessment: Discussed sedation and/or anesthesia options, risks, benefits, and alternatives with patient/parents/legal guardian/POA. Questions invited. The patient/parents/legal guardian/POA seems to understand and agrees to proceed with anesthesia plan. Reviewed the physical assessment, medical history, allergy history and patient home medications list prior to surgery/procedure/anesthetic and documented any changes. Performed airway and anesthesia risk assessments. Procedural Plan Procedural Plan:: Proceed w/ Anesthesia plan Anesthesia Type Anesthesia Type: Spinal Anesthesia Focused Assessment* Temperature: 97.5 F Pulse Rate: 89 Blood Pressure: 157/82 Respiratory Rate: 16 Pulse Ox: 95 Airway Assessment Mouth opens: >3 cm Mallampati Score: III Focused Labs Anesthesia Preop lab: CBC WBC 11.8 K/mm3 (4.4-11.0) H 02/04/24 14:49 RBC 4.05 M/mm3 (4.2-5.4) L 02/04/24 14:49 Hgb 11.7 g/dL (12.0-15.0) L 02/04/24 14:49 Hct 38.1 % (37-47) 02/04/24 14:49 Plt Count 414 K/mm3 (150-450) 02/04/24 14:49 CHEMISTRY Potassium 3.6 mmol/L (3.5-5.1) 02/04/24 14:49 Sodium 140 mmol/L (136-145) 02/04/24 14:49 Magnesium 2.2 mg/dL (1.6-2.6) 01/26/24 14:52 BUN 22 mg/dL (7-18) H 02/04/24 14:49 Creatinine 0.73 mg/dL (0.55-1.02) 02/04/24 14:49 Glucose 84 mg/dL (74-106) 02/04/24 14:49 POC Glucose 116 mg/dL (74-106) H 02/12/24 06:14 TSH 3.39 uIU/mL (0.358-3.74) 09/03/16 07:15 COAG Pre-Assessment Diagnosis/Proposed Procedure Planned Operative Procedure(s): ROBOTIC ASSISTED RIGHT TOTAL KNEE ARTHROPLASTY, ERAS Anesthesia History Anesthesia History - lead infrastructure architect: Anesthesia History - lead infrastructure architect Hx Hospitalization No 01/21/24 08:26 Any Problems With Anesthesia No 01/21/24 08:26 Cholinesterase deficiency No 01/21/24 08:26 You/Your Family Experience No 01/21/24 08:26 fever (hyperthermia) with Relationship Recent Exposure to Contagious No 02/12/24 06:17 Disease Does patient have nerve No 01/21/24 08:26 stimulator Patient instructed to have device shut off --Does patient have Pacemaker No 02/12/24 06:17 or ICD? When Was Last Pacemaker Check QUESTION #4 FULL TEXT: You/Your Family Experience fever (hyperthermia) with Anesthesia Last Oral Intake Last Oral intake: Last Oral Intake NPO since 04:15 02/12/24 06:17 Meds taken in AM with sips of Yes 02/12/24 06:17 water? Meds patient instructed to take am of surgery PONV PONV - lead infrastructure architect: PONV - lead infrastructure architect Female Yes 01/21/24 08:26 HX of Motion Sickness Yes 01/21/24 08:26 HX of N/V After Surgery No 01/21/24 08:26 Non-Smoker Yes 01/21/24 08:26 Duration of Surgery greater Yes 01/21/24 08:26 than 60 minutes Number of Risk Factors 4 01/21/24 08:26 PONV Score Severe Risk 01/21/24 08:26 Height & Weight Height & Weight: Anesthesia: Height & Weight Height 4 ft 9 in 02/12/24 06:17 Weight: 98 kg 02/12/24 06:17 Body Mass Index (BMI) 46.7 02/12/24 06:17 Respiratory Assessment Respiratory Assessment - lead infrastructure architect: Respiratory Tract Infection Hx - lead infrastructure architect Hx Respiratory Tract Infection No 01/21/24 08:26 STOP Sleep Apnea STOP Sleep Apnea - lead infrastructure architect: STOP Sleep Apnea - lead infrastructure architect Hx Hypertension Yes: CONTROLLED ON MED 01/21/24 08:26 Hx Sleep Apnea No 01/21/24 08:26 CPAP BIPAP Do you snore loudly (louder Yes 01/21/24 08:26 than talking or can be heard Do you often feel tired/ No 01/21/24 08:26 fatigued/ sleepy during daytime? Has anyone observed you stop No 01/21/24 08:26 breathing during sleep? STOP Results Positive 01/21/24 08:26 QUESTION #5 FULL TEXT : Do you snore loudly (louder than talking or can be heard through closed doors)? Tobacco Use History Tobacco Use History - lead infrastructure architect: Tobacco Use History - lead infrastructure architect Tobacco Use Smoking Status Never smoker 01/21/24 08:26 Hx Tobacco Use No 01/21/24 08:26 Years Smoking Packs Smoked per Day Smoking Cessation Date was within the last 15 years Hx Smoking Cessation Date Hx Smoking Cessation Counseling Hematologic Medial History Hematologic Hx - lead infrastructure architect: Hematologic Medical Hx - informatics educator Hx of Blood Transfusion No 01/21/24 08:26 Hx of Transfusion in last 3 No 01/21/24 08:26 Months Date of Last Transfusion (if within last 3 months) Ever experience any problems No 01/21/24 08:26 with transfusion(s)? Specify any problems Hx of Preganancy in last 3 No 01/21/24 08:26 Months Nurse Filling Out Transfusion VCHRISTIN 01/21/24 08:26 & Questions: Date: 01/21/24 01/21/24 08:26 Time: 08:28 01/21/24 08:26 Patient unable to answer at this time (ie. confused, unrespo /Reproduction History /Reproductive History - lead infrastructure architect: /Reproductive Hx- lead infrastructure architect Hx Now Gestational Age (in weeks): EDC: Hx Hx Para Hx Section SAB Active Medications Active Medications: Current Medications Generic Name Dose Route Start Last Admin Trade Name Freq PRN Reason Stop Dose Admin Acetaminophen 1,000 mg 02/12/24 10:25 02/12/24 06:27 Acetaminophen 500 Mg Tablet PO 02/12/24 10:26 1,000 mg X1 ONE Administration Celecoxib 400 mg 02/12/24 10:25 02/12/24 06:26 Celecoxib 200 Mg Capsule PO 02/12/24 10:26 400 mg X1 ONE Administration Sodium Chloride 77.9 ml/ 0 ml 02/12/24 10:25 Ropivacaine 200 mg/ OPERA.SITE 02/12/24 10:26 Epinephrine HCl 0.6 mg/ X1 ONE Ketorolac Tromethamine 30 mg/ Morphine Sulfate 5 mg Dexamethasone Sodium Phosphate 10 mg 02/12/24 10:25 Dexamethasone 10 Mg/Ml Vial IV 02/12/24 10:26 X1 ONE Gabapentin 600 mg 02/12/24 10:25 02/12/24 06:26 Gabapentin 600 Mg Tablet PO 02/12/24 10:26 600 mg X1 ONE Administration Lactated Ringer's 1,000 mls @ 999 mls/hr 02/12/24 10:25 02/12/24 06:27 IV 02/12/24 11:25 999 mls/hr .Q1H1M АННА Administration Cefazolin Sodium 2 gm/ Sodium 110 mls @ 150 mls/hr 02/12/24 10:25 Chloride IV 02/12/24 11:08 PREOP ONE Tranexamic Acid 1,000 mg/ 110 mls @ 660 mls/hr 02/12/24 10:25 Sodium Chloride IV 02/12/24 10:34 X1 ONE Tranexamic Acid 1,000 mg/ 110 mls @ 660 mls/hr 02/12/24 10:25 Sodium Chloride IV 02/12/24 10:34 X1 ONE Lactated Ringer's 1,000 mls @ 999 mls/hr 02/12/24 10:25 IV 02/12/24 11:25 .Q1H1M АННА Magnesium Sulfate 1 gm/ 102 mls @ 408 mls/hr 02/12/24 10:25 02/12/24 06:27 Dextrose IV 02/12/24 10:39 408 mls/hr X1 ONE Administration Lactated Ringer's 1,000 mls @ 15 mls/hr 02/12/24 06:00 IV .Q48H АННА Insulin Human Lispro 1 - 6 unit 02/12/24 10:25 Insulin Lispro 100 Unit/Ml Insuln.Pen SC Q4H PRN PRN BG>/= 180, SEE PROTOCOL Protocol PFSH Medical History Post-menopausal Arthritis Non-smoker Shortness of breath on exertion History of stress test Cardiology follow-up encounter Abnormal EKG Abnormal stress test Arthritis of both knees Hypertension Home Medications ?Medication ?Instructions ?Recorded ?Last Taken ?Type ibuprofen 100 mg tablet (Advil) 200 mg PO PRN 08/16/17 Unknown History meclizine 25 mg tablet 25 mg PO Q8H PRN PRN Dizziness #20 12/10/23 Unknown Rx tabs valacyclovir 500 mg tablet 500 mg PO DAILY 12/12/23 Unknown History aspirin 81 mg tablet,delayed 81 mg PO QDAY #60 tabs 12/17/23 12/25/23 Rx release (Adult Low Dose Aspirin) metoprolol succinate 50 mg 50 mg PO DAILY #60 tabs 12/17/23 02/12/24 04:15 Rx tablet,extended release 24 hr (Toprol XL) Allergy/AdvReac Type Severity Reaction Status Date / Time sulfamethoxazole (From Allergy Severe Unknown Verified 01/21/24 08:16 Bactrim) trimethoprim (From Bactrim) Allergy Severe Unknown Verified 01/21/24 08:16 Family History Mother CAD (coronary artery disease) Diabetes Surgical History History of cardiac catheterization History of partial hysterectomy Social History Smoking Status: Never smoker alcohol intake: never Review of Systems (Anesthesia) ROS Narrative System reviewed and no additional complaints, except as documented.
--- NOTE | 2024-02-12 07:30 | KNEE_PTH ---
PATIENT: RACHELL VELASCO LOC: MS3 U#:[id number] AGE/SX: 63/F ROOM: [facility] [place] RE02/12/[address]: Dr. Mohan Adams DO : 1960 BED: 1 DIS: 02/13/2024 SPEC #: [id number] RECD: 02/12/24 10:51 STATUS: DENISE REMauricio #: [id number] DARWIN: 02/12/24 07:[address]: Mohan Adams DEPT: SURGICAL PATHOLOGY RECD BY: Vidhi Willson ENTERED: 02/12/24 12:27 SP TYPE: TOTAL KNEE OTHR DR: MD Dr. Erwni Javier MD Tissues: Knee, NOS Procedures: Decalcification bone/plaque Surgery Specimen Level IV HEADER OPERATION: TWAN, robotic assisted right total knee arthroplasty PRE-OP DIAGNOSIS: Osteoarthritis right knee TISSUE SUBMITTED: Debrided bone and tissue right knee MICROSCOPIC DIAGNOSIS Bone and soft tissue, right knee, total knee replacement/resection: Pieces of bone with degenerative osteoarthritic changes. ABBEY: 02/18/2024 MICROSCOPIC DESCRIPTION Slides are reviewed. GROSS DESCRIPTION Received is one container designated bone and soft tissue right knee. The specimen consists of multiple fragments of connelly-yellow bone measuring in aggregate 9.5 x 10.0 x 2.5 cm. No soft tissue is identified. A number of bony fragments contain articular surfaces consistent with tibial plateau and femoral condyle and displaying prominent osteophyte formation, eburnation and bone erosion. Lead Performance Support Analyst sections are submitted in one cassette after decalcification. / ABBEY/ 02/12/2024 TC:5 CPT: 14023, 00691
[2024-02-12] MEDS: TXA 1000mg in NS100 100ml (IVPB at Incision) 660 MG IV (07:43)
[2024-02-12] MEDS: dexAMETHasone 10 MG/ML Vial IV (07:54)
[2024-02-12] MEDS: TXA 1000mg in NS100 100ml (IVPB at Closure) 660 MG IV (09:11)
[2024-02-12] MEDS: JPS (Morphine 10mg/ml) OPERA.SITE (09:22)
--- NOTE | 2024-02-12 10:00 | PCM.POST.ANE ---
Anesthesia: Postop Eval I Current Vital Signs Temperature: 97.1 F Pulse Rate: 98 Blood Pressure: 140/81 Respiratory Rate: 18 Pulse Ox: 96 Oxygen Delivery Method: Room Air Assessment Airway patent: Yes Spontaneous unlabored respirations: Yes Mental status: Calm nausea: No Vomiting: No Anesthesia Complication: No Fluid Hydration Crystalloid volume administer (ml): 1 Total IV fluid infused: 1 Progress Note Anesthesia document: Postop Eval 1 completed: No
--- NOTE | 2024-02-12 10:03 | OP.PCM_ITS ---
Report of Operation Date of Procedure: 02/12/24 Description of Surgical Findings:: Preoperative diagnosis: Right knee primary osteoarthritis Postoperative diagnosis: Right knee primary osteoarthritis Procedure: Cemented right total knee arthroplasty Surgeon: Mohan Adams DO Manager [employer]: Arina Whitfield PA-C Anesthesia: Spinal with sedation, adductor canal block Anesthesiologist: Dr. Retana Complications: None apparent Drains: None Estimated blood loss: 75 cc Urinary output: None recorded IV fluids: 1700 cc crystalloid Specimens: Total knee resections Surgical implants: Emiliano triathlon X3 asymmetric patella size a35, triathlon cruciate retaining femoral #1, universal tibial baseplate #1, triathlon X3 tibial bearing insert CS 11 mm Indications: This is a 63-year-old female seen in the outpatient setting diagnosed with right knee osteoarthritis with significant varus deformity. She failed nonoperative management with intra-articular corticosteroid injections, activity modification, bracing, [id number] analgesics. X-rays revealed grade 4 medial compartment changes. She also had significant patellofemoral arthritis. I recommended a right total knee arthroplasty. The risk, benefits, alternatives to procedure reviewed with patient at length and he agreed to proceed. Risks included but were not limited to bleeding, infection, loss of life or limb, need for additional surgery, persistent pain, intraoperative or postoperative fracture, instability, loosening of components, wound complications, stiffness, neurovascular injury, DVT or PE. Patient expressed understanding these risks and wished to proceed with surgery. Informed consent was obtained in the outpatient setting. Description of procedure: Patient was identified in the preoperative holding area by name, medical record number, and date of . Informed consent was confirmed with the patient. The operative knee was marked with a surgical marker. At time of her procedure, patient brought to the operative suite and positioned supine a standard operating table. Anesthesia then administered a spinal anesthetic. She was then repositioned in the supine position with all bony prominences well-padded. We then placed a well-padded pneumatic tourniquet on the right upper thigh. The right upper extremity was brought across patient's chest throughout the procedure. We then prepped and draped the right lower extremity in a normal, sterile orthopedic fashion. We performed a timeout with all parties in attendance in agreement with the side, site, operation be performed. No concerns were voiced and would like to proceed with surgery. 2 g Ancef was administered prior to the incision by anesthesia staff as well as 1 g IV TXA. First I exsanguinated the right lower extremity with a Esmarch bandage. Tourniquet was inflated to 280 mmHg, which remained up for approximately 70 minutes. Esmarch was removed. I planned a standard midline approach to the right knee approximately 15 cm in length. Skin was sharply incised with a 10 blade scalpel developing full-thickness layers down to the retinaculum. Layers were developed identifying the VMO. I then planned a standard medial parapatellar arthrotomy performed in flexion. The anterior horn of the medial meniscus was released. Hoffa's fat pad was then released. I then everted the patella in extension and brought the knee into 90 degrees of flexion. The anterior horn of the lateral meniscus was then released. The ACL was split in its mid substance with a 10 blade. We then brought the knee back into extension. An appropriate diameter sized patellar reamer was selected. I measured the thickness of the patella to be 26 mm. I then reamed the patella to a depth of approximately 16 mm. A protective baseplate was then placed on the patella. I then placed pins in the metaphyseal distal femur medial to lateral for the Azael arrays. In similar fashion, I made a 2 cm incision approximately a handsbreadth distal to the tibial tubercle along the medial aspect of the tibia, drilling 2 bicortical pins for the tibial array. The knee was brought into flexion. The patella was subluxed laterally but not everted. Medial lateral retractors were placed. We then utilized the burrp! software to confirm our planned surgical procedure and oriented with the patient's osseous anatomy. All checks with the burrp! system were confirmed. Patient had a significant fixed varus deformity after performing stress examination utilizing the burrp! software. We elected to place the tibial baseplate in 3 degrees of varus to allow for appropriate balancing. Sawblade was then brought in. I first started with the tibial cut, ensuring protection of the MCL and patellar tendon. A tibial wafer was then excised. I then proceeded to make the posterior femoral, anterior, anterior chamfer cuts with the same blade. Ligaments were protected with [employer] retractors. Sawblade was then exchanged to perform the distal femoral and posterior chamfer cuts. The robot was then removed from the surgical field. Remaining loose bone and meniscus was excised carefully. Posterior osteophytes were removed from the distal femur with a curved osteotome and rongeur. Trial components were then placed. Balance was excellent in both extension and 90 degrees flexion. No mid flexion instability was apparent. I then drilled for a size 35 patella. Patella was trialed. Tracking was excellent. We then marked for tibial baseplate. Distal femoral pegs were drilled. Tibial keel was punched. We drilled for short stem for the universal baseplate. Trials were removed. Periarticular block was administered. The wound was copiously irrigated with normal saline solution. Simplex cement was then mixed on the back table. Components were then cemented in place with excess cement being removed. Cement was allowed to cure with the components in full extension utilizing an 11 mm trial polyethylene component. While the cement was curing, Betadine solution was irrigated into the wound and the wound edges. After cement had cured fully, trial polyethylene was removed. Tourniquet was deflated. Hemostasis was excellent. An additional 1 g TXA was administered IV. I selected a size 11 mm polyethylene which was placed and impacted per chief investment officer recommendations. Final components appeared very well balanced with excellent range of motion. There is no significant remaining flexion contracture. The wound was copiously irrigated with normal saline solution. Capsule was closed watertight with #1 strata fix barbed suture. Deeper bursal layer was reapproximated with 0 Vicryl suture. Dermis was reapproximated buried inte rrupted 2-0 Vicryl suture. Skin was finally reapproximated niyah. Sterile silver impregnated compression dressing dressing was applied. Patient tolerated the procedure well without apparent complication. She was safely awakened in the operative suite, transferred to her hospital bed and subsequently to PACU in stable condition. Need for skilled assistant construction superintendent: Arina Whitfield PA-C was critical to the outcome of the case. During the course of the procedure the physician assistant construction superintendent played a vital role. Her intimate knowledge of my steps in the procedure aided in safe and expedient completion of the procedure. The PA played a vital role in positioning particularly in obtaining the appropriate positioning. The PA was also vital in the retraction of soft tissues during the exposure and projecting vital structures. The PA was also vital and protecting soft tissues during times of bony cuts. She also played a vital role in closure with my direct supervision. The PA was also important during reduction and dislocation of the joint and trials intraoperatively. Post Operative Plan: Patient will be placed in observation overnight for medical monitoring and early convalescence. Weightbearing: Range of motion and weightbearing as tolerated right lower extremity. Antibiotics: Ancef 2 g every 8 hours x 3 doses, plan for extended antibiotic prophylaxis due to patient's BMI with 2 weeks doxycycline 100 mg twice daily. DVT Prophylaxis: Aspirin 81 mg twice daily starting postoperative day #1, SCDs, HILLARY kleine, early mobilization Mazariegos: None Dressing: Maintain silver dressing x 5 days X-Rays: 2-week x-rays in the office. Follow-up: 2 weeks for staple removal
--- NOTE | 2024-02-12 10:16 | PCM.POSTANE2 ---
Anesthesia Postop Eval I Sum Anesthesia Postop Eval I Summary Anesthesia Postop Eval I Summary: Anesthesia Postop Eval I: Assessment Summary Airway patent Spontaneous unlabored respirations Mental status nausea Vomiting Anesthesia Postop Eval I: Fluid Summary Crystalloid volume administer (ml) Colloids volume administered ( ml) Blood Product volume administered (ml) Total IV fluid infused Anesthesia Postop Eval I: Summary Notes Anesthesia Complication Anesthesia Complication Comment: Post-operative progress note Anesthesia: Postop Eval II Evaluation Mental status: Awake Pain Level: 0 nausea: No Vomiting: No Complications Anesthesia Complication: No
[2024-02-12 10:55] LABS: Bedside Glucose 139 mg/dL (74-106)
[2024-02-12] MEDS: Lactated Ringers 1,000 ML 125 ML IV (10:58)
[2024-02-12] MEDS: Cefazolin 1 GM/50 ML BAG IV (15:20)
[2024-02-12] MEDS: oxyCODONE 5 MG Tablet PO ×2 (16:08→21:20)
[2024-02-12] MEDS: Acyclovir 200 MG Capsule 400 MG PO (21:16)
[2024-02-12] MEDS: Senna/Docusate Sodium 1 Tablet 2 TABLET PO (21:17)
[2024-02-13 00:28] VITALS: BP 112/45; PULSE 66; RESP 16; TEMP 36.6; O2SAT 98
[2024-02-13] MEDS: Cefazolin 1 GM/50 ML BAG IV (00:28)
[2024-02-13] MEDS: oxyCODONE 5 MG Tablet PO ×3 (02:01→12:09)
[2024-02-13] MEDS: Acetaminophen 500 MG Tablet 1000 MG PO ×2 (04:46→12:10)
[2024-02-13 04:47] VITALS: BP 98/48; PULSE 64; RESP 16; TEMP 36.6; O2SAT 99
[2024-02-13 06:28] LABS: Hematocrit 31.8 % (37-47); Hemoglobin 9.7 g/dL (12.0-15.0); Mean Corp Hgb Conc 30.5 g/dL (32-36); Mean Corpuscular Hgb 29.5 pg (27.0-32.0); Mean Corpuscular Volume 96.7 fL (81-99); Mean Platelet Vol. 10.5 fl (6.2-12.0); Platelet Count 289 K/mm3 (150-450); RBC Distribution Width CV 14.4 % (11.6-14.6); Red Blood Count 3.29 M/mm3 (4.2-5.4); White Blood Count 11.9 K/mm3 (4.4-11.0)
[2024-02-13 07:03] LABS: Anion Gap 9 (5-15); BUN 20 mg/dL (7-18); BUN/Creat Ratio 30.6 RATIO (10-20); Calcium,Total 8.6 mg/dL (8.5-10.1); Chloride 105 mmol/L (98-107); Creatinine, Serum 0.65 mg/dL (0.55-1.02); EST Glomerular Filtration Rate 97 mL/min (>60); Est Glom Filt Rate - Afr Amer 118 mL/min (>60); Estimated Creatinine Clearance 99.21 ml/min; Glucose 114 mg/dL (74-106); Potassium 3.9 mmol/L (3.5-5.1); Sodium Level 141 mmol/L (136-145)
[2024-02-13 08:00] VITALS: RESP 18
[2024-02-13] MEDS: Senna/Docusate Sodium 1 Tablet 2 TABLET PO (08:28)
[2024-02-13] MEDS: Acyclovir 200 MG Capsule 400 MG PO (08:28)
[2024-02-13] MEDS: Aspirin 81 MG TAB.CHEW PO (08:28)
[2024-02-13 08:29] VITALS: PULSE 80
[2024-02-13] MEDS: Metoprolol(XL)Succ 50 MG Tablet PO (08:29)
[2024-02-13 08:52] VITALS: BP 133/64; PULSE 68; RESP 16; TEMP 36.8; O2SAT 99
--- NOTE | 2024-02-13 11:06 | DCINST_ITS ---
Discharge Instructions Diet Discharge Diet: No restrictions Activity Discharge Activity: Return to Normal Activity and May Shower Weight Bearing Status: Weight bearing as tolerated Dressing / Incision Call your doctor if your incision/area has: Continuous Slow Oozing, Sudden Increased Bleeding, Increased Pain/ Swelling, Increased Redness, Foul Smelling Discharge and Swelling at the incision site Call your doctor if you observe: Fever of 101 or Higher, Inability to have a bowel movement, Shortness of breath, Swelling in the ankles, Chest pain, Increased palpitations (irregular heartbeat) and Calf discomfort Remove Dressing in: 1 week Cleanse incision/area with: Soap & Water and Keep Dressing Clean & Dry Follow Up Care When: in 2 weeks with [facility] as previously scheduled Test Results: Test results from this visit will be discussed in further detail at your follow- up appointment, if applicable. Discharge Plan Admission Admit Date/Time: 02/12/24 12:07 Attending Provider: Mohan Adams Primary Care Provider: Casandra Parker Consulting Providers: Erwin Patel Discharge Orders/Prescriptions Prescriptions: New acetaminophen 500 mg Tablet 1,000 mg PO Q8H Qty: 180 0RF aspirin 81 mg Tablet,Chewable 81 mg PO BID 28 Days Qty: 56 0RF meloxicam 7.5 mg Tablet 7.5 mg PO BID Qty: 60 0RF sennosides-docusate sodium [Stool Softener-Stimulant Laxat] 8.6-50 mg Tablet 2 tab PO BID Qty: 14 0RF oxycodone 5 mg Tablet 5 - 10 mg PO Q4H PRN PRN (Reason: Pain Score 4-10) 7 Days Qty: 42 0RF doxycycline monohydrate 100 mg tablet 100 mg PO BID 14 Days Qty: 28 0RF Continued valacyclovir 500 mg tablet 500 mg PO DAILY metoprolol succinate [Toprol XL] 50 mg tablet extended release 24 hr 50 mg PO DAILY Qty: 60 4RF meclizine 25 mg tablet 25 mg PO Q8H PRN PRN (Reason: Dizziness) Qty: 20 0RF Held aspirin [Adult Low Dose Aspirin] 81 mg tablet,delayed release (DR/EC) 81 mg PO QDAY Qty: 60 2RF Hold Instructions: Resume on 03/14/24. No Action Advil 100 mg tablet 200 mg PO PRN Referrals / Follow Up: Casandra Parker MD [Primary Care Provider] - Disposition Disposition (needs filled in before D/C Order can be placed): Home, Self Care
--- NOTE | 2024-02-13 11:15 | CASEMGMT ---
ALFRED MAY Assessment Face to Face with patient for initial transition planning/care coordination assessment. ALFRED MAY introduced self and role at [facility], pt voices understanding. Pt is A&Ox4 and is resting comfortably in the chair and is calm. Care providers, pharmacy, and demographics verified. Admitting dx: RTK PCP: Erwin Ptael Specialists: Angie Carbone Pharmacy: [facility] Insurance: [place] Prescription Benefit:Yes LNOK: [place] (H) Living Arrangements: Pt lives with her in a single story home with a basement and two steps to enter ADLs/IADLs: Ind Transportation: Self, , Friends DME: [facility]. Raised toilet seat with grab bars. Shower chair. Cane. HHC/SNF: Denies Pt?s goal: Home Plan: Home with OP Tx. Pt is set up for OP Tx at [facility] starting 02/15. Pt states that she is agreeable with this plan and denies further questions or concerns. CM to follow. Haylee Johnson RN, CM
--- NOTE | 2024-02-13 11:40 | PN.ORTHO_ITS ---
Subjective Subjective Patient is s/p right sided total knee arthroplasty with Dr. Adams 02/12/2024. Patient resting comfortably in bed side chair. Tearful. Rates pain 5/ 10 at rest. With movement 7/10. States taking Tylenol and oxycodone as needed and ice help to relieve pain. Patient has been up with therapy. Walking with the assit of a walker. Afebrile, no chest pain, shortness of breath, negative calf pain/ erythema, and no other signs of DVT. Objective Data Objective Data Vital Signs: Vital Signs Temp Pulse Resp BP Pulse Ox O2 Del Method O2 Flow Rate 98.3 F 68 16 133/64 H 99 Room Air 2 02/13/24 08:52 02/13/24 08:52 02/13/24 08:52 02/13/24 08:52 02/13/24 08:52 02/13/24 08:52 02/13/24 00:28 Oxygen Flow Rate (L/min) 2 Oxygen Delivery Method Room Air Weight: 106.821 kg Body Mass Index (BMI) 50.9 Intake & Output: Intake and Output for Last 24 Hours 02/11/24 02/12/24 02/13/24 23:59 23:59 23:59 Intake Total 3532 / 3532 250 / 250 Output Total 500 / 500 Balance 3032 / 3032 250 / 250 Lab / Micro Data 02/13/24 05:14 02/13/24 05:14 Labs: Laboratory Results - last 24 hr 02/13/24 05:14: WBC 11.9 H, RBC 3.29 L, Hgb 9.7 L, Hct 31.8 L, MCV 96.7, MCH 29.5, MCHC 30.5 L, RDW Std Deviation 51.0 H, RDW Coeff of Chao 14.4, Plt Count 289, MPV 10.5, Sodium 141, Potassium 3.9, Chloride 105, Carbon Dioxide 27.0, Anion Gap 9, BUN 20 H, Creatinine 0.65, Estim Creat Clear Calc 99.21, Est GFR (MDRD) Af Amer 118, Est GFR (MDRD) Non-Af 97, BUN/Creatinine Ratio 30.6 H, G lucose 114 H, Calcium 8.6 Micro: Microbiology 01/26/24 14:52 Swab (Method) Nasal Screen MRSA/MSSA - Final Physical Exam Narrative Patient resting comfortably in bedside chair No signs of acute distress though tearful about situation. Satting well on room air Limb is warm to touch, Sensation intact throughout entire lower extremity, including saphenous, sural, superficial and deep peroneal, and tibial distribution. DP/PT pulses bounding. Dorsiflexion plantarflexion strength 5/5 Dressing small 2 mm area of drainage in the midportion of the incision. Otherwise clear dry intact. Calf nontender to palpation, no erythema, no edema. Negative Homans Assessment & Plan Assessment/Plan (1) S/P total knee arthroplasty: PLAN: Plan 1. Will continue PT today. Weightbearing as tolerated 2. plan for discharge this afternoon following PT 3. Patient will follow up for post op appointment in 2 weeks as previously scheduled 4. Patient has outpatient PT appointment in the next few days as previously scheduled 5. WBC 11.9 acute reactive leukocytosis: secondary to pre operative decadron. no acute systemic signs of infection. will monitor, and likely self resolve. 6. H/H 9.7/31.8: post operavtive anemia secondary to acute blood loss intraoperatively. Patient is asymptomatic at this time. No intraoperative complications. will continue to monitor. no acute interventions. 7. DVT prophylaxis : Aspirin 1 mg twice daily x 4 weeks 8. Pain control: patient instructed to take tylenol 500mg 2 tablets TID. and oxycodone 1-2 tablets every 4-6 hours only as needed for pain control. 9. Patient also given a prescription of meloxicam, Pepcid, and senna as needed. 10. ok to remove post op dressing. post op day 7
--- NOTE | 2024-02-13 11:43 | CASEMGMT ---
Pt aware OP therapy set up for 02/15 at 1:30. Placed on DC instructions.
[2024-02-13 14:20] VITALS: BP 117/60; PULSE 69; RESP 18; TEMP 36.7; O2SAT 94
== END 2024-02-13 14:20 | disposition home or self-care (01) ==
LOC: SDC 13:05 → MS3 13:05
PROVIDERS: Admitting Provider Student in an Organized Health Care Education/Training Program; PCP Family Medicine; Referring Provider Student in an Organized Health Care Education/Training Program; Visit Provider Student in an Organized Health Care Education/Training Program
PROC: 0SRC0JZ Replacement of Right Knee Joint with Synthetic Substitute, Open Approach (ICD-10-PCS; CPT 27447; principal; 2024-02-12 07:00)
DX: M17.11 Unilateral primary osteoarthritis, right knee (principal)
CPT/HCPCS: 27447; 01402; 64447; S2900; 36415; 73700; 80048; 82040; 82962; 83036; 83735; 85025; 85027; 87077; 87081; 88305; 88311; 94668; 96365; 96366; 96375; 97110; 97162; 97166; 97530; 97535; 99221; C1776; G0378; J2405; J3475

== ENCOUNTER → 2024-05-31 | Outpatient (CLI) | payer BC, SELFPAY ==
--- NOTE | 2024-05-31 12:20 | CT_ITS ---
CT LEFT LOWER EXTREMITY WITH 3-D IMAGING CLINICAL INDICATION: LT KNEE *JB PROTOCOL* TECHNIQUE: Axial CT images of the left lower extremity (including left hip, left knee, and left ankle) was performed without IV contrast material. Coronal and sagittal reformats were provided. The protocol utilizes one or more of the following dose reduction techniques: automated exposure control, adjustment of mA and/or kV according to patient size, and/or use of iterative reconstruction technique. RADIATION DOSAGE (If Supplied By Facility): CTDIvol = ( 19.05 ) mGy, DLP = ( 1138.54 ) mGycm COMPARISON: No relevant prior comparison study available. FINDINGS: Bones: There is mild degenerative arthrosis of the left hip joint with mild joint space narrowing and marginal osteophyte formation. There is mild pubic symphysis arthrosis. There is moderate tricompartment degenerative arthrosis of the left knee with joint space narrowing, marginal osteophyte formation, and areas of subchondral sclerosis in the medial femorotibial compartment. There is a small plantar calcaneal spur. Osseous structures are normal without evidence of fracture or dislocation. No lytic or blastic osseous masses. Soft Tissues: There is a small left knee joint effusion. The deep soft tissue structures are unremarkable. The superficial soft tissues are unremarkable without evidence of edema, hematoma, or foreign body. CT/Extremity Lower without Contra IMPRESSION: Moderate tricompartment degenerative arthrosis of the left knee. Small left knee joint effusion. Electronically Signed: Tyrone Correa MD at 14:21 EDT ,
== END | disposition home or self-care (01) ==
LOC: CT 12:19
PROVIDERS: PCP Family Medicine; Referring Provider Student in an Organized Health Care Education/Training Program; Visit Provider Student in an Organized Health Care Education/Training Program
DX: M17.12 Unilateral primary osteoarthritis, left knee (principal); M25.562 Pain in left knee
CPT/HCPCS: 73700

== ENCOUNTER 2024-06-14 12:25 | Emergency (ER) | payer BC, SELFPAY ==
[2024-06-14 12:25] VITALS: BP 151/67; PULSE 95; RESP 18; TEMP 36.4; O2SAT 98; BMI 49.7
[2024-06-14 14:25] VITALS: BP 141/67; PULSE 66; RESP 18; O2SAT 95
[2024-06-14 16:00] VITALS: BP 132/88; PULSE 68; RESP 18; O2SAT 99
--- NOTE | 2024-06-14 16:18 | VDLE_ITS ---
Reason For Study: Swelling RLE RIGHT GSV is normal. CFV is compressible, spontaneous, phasic, competent and demonstrates normal augmentation. FV is compressible, spontaneous, phasic, competent and demonstrates normal augmentation. POP V is compressible, spontaneous, phasic, competent and demonstrates normal augmentation. T/P Trunk is compressible. PTV is compressible. RT PerV is compressible. Patient unable to tolerate compressions mid/distal thigh; relied on color doppler. Procedure This is a venous duplex using B-mode, color flow and spectral Doppler. Exam performed portable in ED. A preliminary report was called and/or faxed to ED. VL/Venous Duplex US, Unilateral Interpretation Summary Deep veins of the right lower extremity are patent and compressible segmentally . There is no evidence of right lower extremity deep vein thrombosis. The right great sapheno us vein appears patent and compressible segmentally. Ordering Physician: Jeanne Varela Referring Physician: Casandra Parker Performed By: Germania Escudero RDCS, RVT
--- NOTE | 2024-06-14 16:31 | EX.ED.DYSGE1 ---
HPI History of Present Illness Chief Complaint: Flank Pain Informant: patient Narrative Narrative: Patient 63-year-old female with history of hypertension and right total knee replacement presenting with right back/flank pain. She states has been going on for couple weeks. She states it is worse with certain movements but she cannot always reproduce it. She states sometimes it radiates across to her back. She is also been having some mild pain in her right groin. She has been taking Tylenol with no symptom relief. She states she cannot take any NSAIDs right now because she is due to have surgery on her other knee this week. She states she wanted to get checked out with this pain to make sure what the more severe before she had her surgery. She initially went to urgent care where she had a urinalysis which was negative to the ER for further evaluation. She denies any urinary symptoms such as blood in her urine or painful urination. She denies any associated vaginal bleeding or discharge. Show she has been having some vaginal irritation and thinks maybe her herpes is flared up. She does take acyclovir for this. No fevers reported. No nausea or vomiting. No other complaints or concerns at this time. Patient also notes that she has been having this pain in her right groin and she feels her right leg is a little swollen. She wonders if that is from scar tissue from her prior C-sections. Does report a history of C-sections as well as hysterectomy [facility] Medical History History of pain when walking History of edema Post-menopausal Arthritis Non-smoker Shortness of breath on exertion History of stress test Cardiology follow-up encounter Abnormal EKG Abnormal stress test Arthritis of both knees Hypertension Home Medications ?Medication ?Instructions ?Recorded ?Last Taken ?Type ibuprofen 100 mg tablet (Advil) 200 mg PO PRN 08/16/17 Unknown History valacyclovir 500 mg tablet 500 mg PO DAILY 12/12/23 Unknown History metoprolol succinate 50 mg 50 mg PO DAILY #60 tabs 12/17/23 02/12/24 04:15 Rx tablet,extended release 24 hr (Toprol XL) Allergy/AdvReac Type Severity Reaction Status Date / Time sulfamethoxazole (From Allergy Severe Unknown Verified 06/14/24 12:27 Bactrim) trimethoprim (From Bactrim) Allergy Severe Unknown Verified 06/14/24 12:27 Family History Mother CAD (coronary artery disease) Diabetes Surgical History Hx of total knee arthroplasty History of cardiac catheterization History of partial hysterectomy Social History Smoking Status: Never smoker alcohol intake: never ROS ROS ED Constitutional Constitutional ED: Denies chills or fever(s) Cardiovascular Cardiovascular: Denies chest pain Respiratory/Chest Respiratory/Chest: Denies cough or dyspnea Gastrointestinal Gastrointestinal: Denies abdominal pain, nausea or vomiting Musculoskeletal Musculoskeletal: Reports back pain and other Details: Right leg swelling ; Denies myalgias or neck pain Integumentary Denies rash Neurologic Neurologic: Denies headache(s) or paresthesias Psychiatric Psychiatric: Denies anxiety Hematologic/Lymphatic Hematologic/Lymphatic: Denies easy bleeding or easy bruising EXAM Physical Exam Const Vital Signs: 06/14/24 12:25 06/14/24 14:25 06/14/24 16:00 Temperature 97.5 F L Temperature Source Temporal Pulse Rate 95 66 68 Respiratory Rate 18 18 18 Blood Pressure 151/67 H 141/67 H 132/88 H Blood Pressure Mean 95 91 102 Pulse Ox 98 95 99 Oxygen Delivery Method Room Air 06/14/24 18:00 Temperature Temperature Source Pulse Rate 71 Respiratory Rate 18 Blood Pressure 133/91 H Blood Pressure Mean 105 Pulse Ox 99 Oxygen Delivery Method Positive well nourished and well developed General Appearance ED: well developed and NAD HEENT Reports moist mucous membranes Neck supple Chest Wall inspection of chest normal and palpation of chest normal Resp normal respiratory effort and clear to auscultation bilaterally Cardio regular rate and regular rhythm GI normal to inspection, nondistended, normoactive bowel sounds and non-tender Auscultation: normoactive bowel sounds Palpation: soft; Negative for mass or rebound tenderness present Back/Spine no CVA tenderness Back/Spine Narrative: Patient points to her right CVA area as area of pain but no reproducible tenderness. Thoracic Spine / Upper Back: Negative for thoracic spinal tenderness or paraspinal muscle tenderness Lumbar Spine / Lower Back: Negative for lumbar spinal tenderness Extremity Extremity Narrative: Very subtle nonpitting Normal ambulation. Edema of the right lower extremity compared to the left. No palpable cords present. negative straight leg test bilaterally. Neuro oriented x3 Sensorium / Orientation: alert Motor Exam: Negative for general weakness Psych mental status grossly normal Skin no rashes or lesions noted and no wounds MDM MDM MDM Narrative Medical decision making narrative: Patient is evaluated for right flank pain. There is some positions where it is worse but others not. She does having pain in her right lower quadrant. Finally she is also complaining of some increased swelling of her right lower extremity after further discussion. Differential includes muscle skeletal pain, renal colic, small bowel obstruction, hernia, DVT of the right lower extremity as well as pyelonephritis/urinary tract infection. Urinalysis is not consistent with infection but is contaminated. I do not think a culture is needed. CBC largely normal. She has a mild anemia with a hemoglobin 0.6 which I do not think is associated her presentation today. Her BMP is normal. CT flank study does not show any acute process but does show degenerative change of the lumbar spine with grade 1 spondylolisthesis at L4/5. Venous duplex is negative for DVT. Patient is informed of her findings. At this time I do not see reason she cannot have any surgery later this week. Patient is informed of this. She will follow-up with her surgeon. Is counseled to continue doing Tylenol and to try Lidoderm patches for her back pain. Will avoid steroids or NSAIDs per the instructions of her surgeon. Given return precautions. Discharged home in stable condition. Is given a spinal prior to discharge as she states she is now developing a headache but attributes that to not having Tylenol since 10 AM this morning and not really eating or drinking that she has been in urgent care/ER all day. Lab Data Labs: Laboratory Results - last 24 hr 06/14/24 06/14/24 16:55 17:10 WBC 9.5 RBC 4.17 L Hgb 11.7 L Hct 39.1 MCV 93.8 MCH 28.1 MCHC 29.9 L RDW Std Deviation 47.9 H RDW Coeff of Chao 13.9 Plt Count 384 MPV 10.4 Immature Gran % (Auto) 0.400 Neut % (Auto) 68.0 Lymph % (Auto) 23.1 [place] % (Auto) 6.4 Eos % (Auto) 1.5 Baso % (Auto) 0.6 Absolute Neuts (auto) 6.5 Absolute Lymphs (auto) 2.20 Nucleated RBC % 0 Sodium 141 Potassium 3.8 Chloride 105 Carbon Dioxide 28.0 Anion Gap 7 BUN 27 H Creatinine 0.70 Estim Creat Clear Calc 86.97 Est GFR (MDRD) Af Amer 109 Est GFR (MDRD) Non-Af 90 BUN/Creatinine Ratio 38.6 H Glucose 106 Calcium 9.6 Urine Color Yellow Urine Clarity Clear Urine pH 6.0 Ur Specific [place] 1.015 Urine Protein Negative Urine Glucose (UA) Normal Urine Ketones Negative Urine Occult Blood Negative Urine Nitrite Negative Urine Bilirubin Negative Urine Urobilinogen Normal Ur Leukocyte Esterase 25 H Urine RBC 0 SEEN Urine WBC 0-5 SEEN Ur Squamous Epith Cells 5-10 SEEN Ur Transition Epith Cell 0-5 SEEN Urine Bacteria 1+ Urine Mucus 0 SEEN Radiography Diagnostic Testing: Clinical Impression(s) from Imaging Studies Abdomen/Pelvis CT 06/14/24 17:10 IMPRESSION: No evidence for renal obstruction or ureteral calculus No evidence for small bowel obstruction or other acute abnormality. Other findings as above Electronically Signed: Anuel Shirley MD at 18:12 EDT , Discharge Plan Triage Chief Complaint: Flank Pain ED Provider: Jeanne Varela Dx/Rx/DC Orders Clinical Impression: Right flank pain Instructions: ED Flank Pain, Uncertain Cause Prescriptions: No Action Advil 100 mg tablet 200 mg PO PRN valacyclovir 500 mg tablet 500 mg PO DAILY metoprolol succinate [Toprol XL] 50 mg tablet extended release 24 hr 50 mg PO DAILY Qty: 60 4RF Primary Care Provider: Casandra Parker Referrals: Casandra Parker MD [Primary Care Provider] - Activity Restrictions/Additional Instructions: Your workup was largely normal today. No signs of kidney infection, kidney stone or other acute process. I suspect the pain in your back is more muscular or possibly associate with arthritis in your spine. From your workup today I do not see a reason why he cannot have your knee surgery later this week. Please return if you have a progression worsening symptoms. Continue to take Tylenol and I do recommend using [id number] Salonpas 4% strength patches to help with the pain as well. Print Language: Thai Disposition Disposition: Home, Self Care
--- NOTE | 2024-06-14 17:10 | CT_ITS ---
STUDY: CT ABDOMEN AND PELVIS WITHOUT CONTRAST REASON FOR EXAM: Female, 63 years old. Kidney Stone RADIATION DOSAGE (If Supplied By Facility): CTDIvol = ( 21.11 ) mGy, DLP = ( 1075.96 ) mGycm TECHNIQUE: Transaxial images were obtained from the dome of the diaphragm to the symphysis pubis without oral contrast, and without intravenous contrast. Sagittal and coronal images were reconstructed. Individualized dose optimization techniques were used for this CT. COMPARISON: None. FINDINGS: Small calcified granuloma in left lower lobe. The visualized portions of the heart are within normal limits. Liver is normal in size and homogeneous attenuation. There is a tiny cyst in the right lobe. Bile ducts are not dilated.. Normal gallbladder and extrahepatic biliary system. Tiny granulomatous calcification in the spleen.. Diffusely atrophic fatty infiltrated pancreas with little residual parenchymal tissue Normal bilateral adrenal glands. Normal right kidney. There is a tiny cyst in the left kidney which will not require additional imaging Normal visualized stomach. Normal small intestine. Normal colon. No evidence for acute appendicitis Normal abdominal aorta. Normal inferior vena cava. Normal retroperitoneum. Poorly distended thick walled bladder likely of no significance. Uterus not visualized status post hysterectomy. Small left ovarian cyst is noted Normal abdominal wall. Lumbar spine demonstrates degenerative change. Grade 1 spondylolisthesis at L4-5 CT/Abdomen/Pelvis without Cont IMPRESSION: No evidence for renal obstruction or ureteral calculus No evidence for small bowel obstruction or other acute abnormality. Other findings as above Electronically Signed: Anuel Shirley MD at 18:12 EDT ,
[2024-06-14 17:17] LABS: Absolute Neutrophil Count 6.5 X10^3/uL (2.0-7.7); Basophil# 0.06 X10^3/uL; Basophil% 0.6 % (0-1); Eosinophil# 0.14 X10^3/uL; Eosinophils% 1.5 % (0-5); Hematocrit 39.1 % (37-47); Hemoglobin 11.7 g/dL (12.0-15.0); Lymphocyte % 23.1 % (19-41); Mean Corp Hgb Conc 29.9 g/dL (32-36); Mean Corpuscular Hgb 28.1 pg (27.0-32.0); Mean Corpuscular Volume 93.8 fL (81-99); Mean Platelet Vol. 10.4 fl (6.2-12.0); Monocyte# 0.61 X10^3/uL; Monocyte% 6.4 % (0-10); NRBC Flagged by Analyzer 0 % (0-5); Neutrophil # 6.48 X10^3/uL (2.7-7.7); Platelet Count 384 K/mm3 (150-450); RBC Distribution Width CV 13.9 % (11.6-14.6); RBC Distribution Width SD 47.9 fl (35.1-43.9); Red Blood Count 4.17 M/mm3 (4.2-5.4); White Blood Count 9.5 K/mm3 (4.4-11.0)
[2024-06-14 17:18] LABS: Mucous, Urine 0 SEEN /hpf (<or=2+); Red Blood Cells-Urine 0 SEEN /hpf (0-5)
[2024-06-14 17:29] LABS: Color, Urine Yellow (Yellow); Glucose, Dipstick Normal (Normal); Ketone-Dipstick Negative (Negative); Leukocyte Esterase-Dipstick 25 /ul (Negative); Nitrite-Dipstick Negative (Negative); Occult Blood-Urine Negative /ul (Negative); Protein-Dipstick Negative (Negative); Specific Gravity, Urine 1.015 (1.002-1.030); Urine Bilirubin Dipstick Negative (Negative); Urine Clarity Clear (Clear); Urine Urobilinogen Normal (Normal)
[2024-06-14 17:30] LABS: Anion Gap 7 (5-15); BUN 27 mg/dL (7-18); BUN/Creat Ratio 38.6 RATIO (10-20); Calcium,Total 9.6 mg/dL (8.5-10.1); Chloride 105 mmol/L (98-107); EST Glomerular Filtration Rate 90 mL/min (>60); Est Glom Filt Rate - Afr Amer 109 mL/min (>60); Estimated Creatinine Clearance 86.97 ml/min; Glucose 106 mg/dL (74-106); Potassium 3.8 mmol/L (3.5-5.1); Sodium Level 141 mmol/L (136-145)
[2024-06-14 17:46] LABS: Bacteria 1+ /hpf (None Seen); Squamous Epithelial Cells - UA 5-10 SEEN /hpf (5-10); Transitional Epithelial - Ur 0-5 SEEN /hpf (0-5); White Blood Cells 0-5 SEEN /hpf (0-5)
[2024-06-14 18:00] VITALS: BP 133/91; PULSE 71; RESP 18; O2SAT 99
[2024-06-14] MEDS: Acetaminophen 325 MG Tablet 650 MG PO (19:11)
[2024-06-14 19:12] VITALS: BP 128/99; PULSE 76; RESP 16; TEMP 36.7; O2SAT 99
--- OUTSIDE RECORDS SUMMARY | 2024-06-14 19:59 | XMS RPT_ITS | CCD ---
Author Organization [facility] Care Team Providers Care Nnp Name Role Phone Casandra Parker Primary Care Provider [phone] CASANDRA PARKER Primary Care Unavailable KRUNAL VASQUES Attending Unavail ROMELIA Gong Attending Unavailable CASANDRA PARKER Primary Care Unavailable Allergies Allergy Classification Reported Allergen(s) Allergy Type Date of Onset Reaction(s) Facility (4 sources) Sulfamethoxazole / Trimethoprim; Translations: [SULFAMETHOXAZOLE-TRI METHOPRIM] Drug Allergy 5 Rash [facility] Work Phone: Medications Completed/Discontinued Medications Medication Drug Class(es) Dates Sig (Normalized) Sig (Original) acyclovir 400 mg oral tablet (2 sources) Herpesvirus Nucleoside Analog DNA Polymerase Inhibitor, Herpes Simplex Virus Nucleoside Analog DNA Polymerase Inhibitor, Herpes Zoster Virus Nucleoside Analog DNA Polymerase Inhibitor Start: 06-06-2023 End: 06-13-2023 take 1 tablet by mouth twice daily acyclovir (ZOVIRAX) 400 mg tablet Take 1 tablet by mouth two times a day for 7 days. 14 tablet 0 06/06/2023 Active Comment on above: Take 1 tablet by [facility] two times a day for 7 days. clobetasol propionate 0.5 mg/ml topical cream (1 source) Corticosteroid Start: 09-01-2023 clobetasol (TEMOVATE) 0.05 % cream Apply to affected area twice weekly. 45 g 0 09/01/2023 Active Comment on above: Apply to affected ar ea twice weekly. lidocaine 0.04 mg/mg topical gel (1 source) Antiarrhythmic, Amide Local Anesthetic Start: 11-13-2023 lidocaine 4 % gel Apply to affected area three times a day as needed. 30 g 0 11/13/2023 Active Comment on above: Apply to affected ar ea three times a day as needed. predniSONE 10 mg oral tablet (3 sources) Start: 08-17-2017 predniSONE (DELTASONE) 10 mg tablet Indications: Monterroso's palsy Take 6 tablets daily for 5 days, then 5 tablets for one day, then 4 tablets for one day, then 3 tablets for one day, then 2 tablets for one day, then 1 tablet for one day. 45 tablet 0 08/17/2017 Active Comment on above: Take 6 tablets daily for 5 days, then 5 tablets for one day, then 4 tablets for one day, then 3 tablets for one day, then 2 tablets for one day, then 1 tablet for one day. valACYclovir 500 mg oral tablet (1 source) Herpesvirus Nucleoside Analog DNA Polymerase Inhibitor, Herpes Simplex Virus Nucleoside Analog DNA Polymerase Inhibitor, Herpes Zoster Virus Nucleoside Analog DNA Polymerase Inhibitor Start: 11-13-2023 take 1 tablet by mouth once daily valACYclovir (VALTREX) 500 mg tablet Take 1 tablet by mouth once daily. 30 tablet 12 11/13/2023 Active Comment on above: Take 1 tablet by [facility] once daily. 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 Episodic Past or Other Problems Problem Classification Problem Date Documented Da te Episodic/Chronic Residual codes; unclassified (3 sources) Family history of cancer of colon; Translations: [Family history of malignant neoplasm of digestive organs] Onset: 12-13-2014 12-13-2014 Episodic Results Test Name Value Interpretation Reference Range Facil marky Gallegos 11-21-2023 [facility] Telephone (OBGYWM) ANETA LOGAN ([id number]) 1960 F Date Time Provider Department 11/21/23 KRUNAL VASQUES During your visit today, we recorded the following information about you: Leonela Meyers RN 11/21/2023 11:02 AM Signed ----- Message from Krunal Astorga MD sent at 11/21/2023 10:49 AM EDT ----- Please notify patient that results are c/w Lichen sclerosis. Use clobetasol as we discussed at her appt. Leonela Meyers RN 11/21/2023 11:02 AM Signed Left message for patient to call office. ALFRED Peña Trisha, RN 11/24/2023 10:52 AM Signed Patient notified. Leonela Meyers RN Allergies As of Date: 11/21/2023 Noted Allergy Reaction BACTRIM (SULFAMETHOXAZOLE-TRIME TH*07/24/2005 2 - Rash Date Reviewed: 11/13/2023 Reviewed by: Shira Winn MA - Fully Assessed Reason for Visit: Results [95] Prescriptions as of 11/24/2023 - lidocaine 4 % gel Apply to affected area three times a day as needed. - valACYclovir (VALTREX) 500 mg tablet Take 1 tablet by mouth once daily. - clobetasol (TEMOVATE) 0.05 % cream Apply to affected area twice weekly. - predniSONE (DELTASONE) 10 mg tablet Take 6 tablets daily for 5 days, then 5 tablets for one day, then 4 tablets for one day, then 3 tablets for one day, then 2 tablets for one day, then 1 tablet for one day. Problem List As Of Date 11/21/2023 Noted Resolved Family history of colon cancer in mother [Z80.0]12/13/2014 Encounter Status:Closed by LEONELA MEYERS on 11/24/23 [facility] CNOVon 11-13-2023 CNOV Office Visit (OBGYWM ) ANETA LOGAN ([id number]) 1960 F Date Time Provider Department 11/13/23 3:00 PM KRUNAL VASQUES OBGYWM During your visit today, we recorded the following information about you: Blood pressure Weight 132/86 99.4 kg Krunal Vasques MD 11/13/2023 3:53 PM Signed Supervisory Aide offered: Patient declines. Aneta Logan is a 63 year old female who presents for problem visit of vaginal itching for a couple days. HPI: Reports increased vulvar, vaginal itching for the past couple days. Reports some pain from the persistent scratching. Denies breaking skin with scratching. Has been using leftover steroid cream from lichen sclerosis that seems to be helping. Has noticed some dysuria when urinating irritates the inflamed areas. Doesn't feel any blisters or masses in her vulvar area. Ibuprofen helps a little. Reports that she is still sexually active, sometimes has pain and bleeding with intercourse. Pt reports no changes in soaps or detergents. Pt reports she feels it is HSV outbreak. Pt states has never had biopsy of LS to confirm. OB History T0 L3 SAB0 IAB0 Ectopic0 Multiple0 Live Births0 Butcher Assistant History LMP: Hysterectomy Age at Menarche: Age at First : Age at Menopause: Butcher Assistant History Comments: Sexual Activity: Not Currently; Male Contraception: Surgical No past medical history on file. PAST SURGICAL HISTORY Procedure Laterality Date HYSTERECTOMY HX abdominal/partial FAMILY HISTORY Problem Relation Age of Onset Cancer Mother colon/lung Heart Father No Known Problems Maternal Grandmother No Known Problems Maternal Grandfather No Known Problems Paternal Grandmother No Known Problems Paternal Grandfather Social History Tobacco Use Smoking status: Never Smokeless tobacco: Never Vaping Use Vaping Use: Never used Substance Use Topics Alcohol use: No Drug use: No Current Outpatient Medications Medication Sig clobetasol (TEMOVATE) 0.05 % cream Apply to affected area twice weekly. acyclovir (ZOVIRAX) 400 mg tablet Take 2 tablets by mouth two times a day for 5 days. predniSONE (DELTASONE) 10 mg tablet Take 6 tablets daily for 5 days, then 5 tablets for one day, then 4 tablets for one day, then 3 tablets for one day, then 2 tablets for one day, then 1 tablet for one day. (Patient not taking: Reported on 06/17/2023) No current facility-administered medications for this visit. Allergies As of Date: 11/13/2023 Allergen Noted Reaction BACTRIM [SULFAMETHOXAZOLE-TRIME TH*07/24/2005 Rash Fully Assessed 11/13/2023 REVIEW OF SYSTEMS Abdomen: No bloating, early satiety, indigestion, or increased flatulence. No abdominal pain, nausea, vomiting, diarrhea, or constipation. Bladder: positive for some dysuria. No hematuria. Expanded ROS: GENERAL: Negative for fever Allergies and current medication updated:Yes EXAM: BP 132/86 Wt 219 lb 3.2 oz (99.4kg) GENERAL: pleasant, female in no apparent distress HEENT: Normocephalic, atraumatic, mucus membranes moist, and no lesions DERMATOLOGY: Normal, without lesions, non-icteric, and non-hirsute PELVIC: external genitalia normal, normal Bartholin's glands, urethra, [place]'s glands, Significant hypopigmentation of Vulva from clitoris- labia minora down around anus and onto groin - some ulcerations. On left labia minora there are two healing ulcerations c/w HSV. Has areas of ecchymosis diffuse on tissue. NEURO: alert and oriented x3,exam grossly non-focal EXTREMITIES: normal ASSESSMENT AND PLAN: Encounter Diagnosis ICD-10-CM 1. Vulvar dermatitis L30.9 2. Ulceration of vulva N76.6 3. Vulvar itching L29.2 4. HSV (herpes simplex virus) anogenital infection A60.9 5. Discussed Vulvar biopsy with patient - agreeable today. 6. Suppression therapy d/w patient- valtrex ordered. 7. Lidocaine gel ordered 8. Advised on proper use of clobetasol BID x 6 weeks then use at least weekly , avoid vulvar irritants. Hygiene reviewed. Medical Decision Making: Problems: Moderate: 2+ stable chronic illnesses Data: Unique test(s) ordered: 1 Risk: Moderate: Drug management and Moderate risk from testing/treatment Medical Decision Making Level: 4 - Moderate Krunal Hernandez MD Aneta Logan is a 63 year old female who presents today for a vulvar biopsy. Indication: history of lichen sclerosis, UNIVERSAL PROTOCOL / SAFETY CHECKLIST Procedure to be Performed: vulvar biopsy Sign In: A Moment of CARE was completed. Personnel directly involved with the procedure wore the appropriate PPE (Personal Protective Equipment). Patient/Surrogate Stated/Verified: PATIENT VERIFIED(optional for EMERGENT procedures): Patient name, Date of , Relevant allergies, and The intended procedure Time Out Communication: Intended patient and procedure match the source docum (more content not included)... Normal [facility] SURGICAL PATHOLOGYon 024 CASE REPORT Normal [facility] Comment on above: Order Comment: Speci men Type: TISSUE SPECIMEN Ordering Facility: [facility] Address: [address] [place] [address] Result Comment: Surg ical Pathology Report Case: [id number] Authorizing Provider: Krunal Vasques, Collected: 11/13/2023 04:03 PM Ordering Location: OB/Gynecology Received: 11/13/2023 04:54 PM Pathologist: Calvin Golden MD Specimen: VULVA BIOPSY, right perineum Performed By: #### S #### [facility] CLIA [id number] [address] [place] [address] [facility] CLINICAL HISTORY vulvar dermatitis Normal [facility] Comment on above: Order Comment: Speci men Type: TISSUE SPECIMEN Ordering Facility: [facility] Address: [address] [place] [address] Performed By: #### S #### [facility] CLIA [id number] [address] [place] [address] [facility] DIAGNOSIS COMMENT Normal [facility] Comment on above: Order Comment: Speci men Type: TISSUE SPECIMEN Ordering Facility: [facility] Address: [address] [place] [address] Result Comment: In a ddition to the submucosal edematous and hyalinized zone, the lower to mid epidermis reveals cytologic atypia with nuclear enlargement, prominent nucleoli and scattered mitotic figures. However, an immunohistochemical stain with appropriate controls for p53 reveals a wild-type staining pattern. The atypical cytologic features and the wild-type p53 stain are consistent with atypical lichen sclerosus. Laboratory Developed Test (LDT) Disclaimer: Performance characteristics of immunohistochemical, immunofluorescent and chromogenic in-situ hybridization tests have been determined by the performing laboratory within [facility]???s [facility] [place] ([facility], [facility], [facility], [facility], [facility], [facility], or [facility]) in a manner consistent with CLIA requirements. One or more of these tests have not been cleared or approved by the FDA. [facility] is regulated under CLIA as qualified to perform high-complexity testing. These tests are used for clinical purposes. They should not be regarded as investigational or for research. Positive and negative controls stain appropriately. Performed By: #### S #### [facility] CLIA [id number] [address] [place] [address] STATES [facility] FINAL DIAGNOSIS Normal [facility] Comment on above: Order Comment: Speci men Type: TISSUE SPECIMEN Ordering Facility: [facility] Address: [address] [place] [address] Result Comment: Vulv a, right perineum, biopsy: - Atypical lichen sclerosus (see comment). [facility] 11/18/2023 Performed By: #### S #### [id number] [address] [place] [address] STATES [facility] FINAL PERFORMING LAB Normal [facility] Comment on above: Order Comment: Speci men Type: TISSUE SPECIMEN Ordering Facility: [facility] Address: [address] [place] [address] Result Comment: Diag nostic interpretation performed at [facility], [address] [place] [address] CLIA# [id number] [employer]: Calvin Golden M.D. Performed By: #### S #### [facility] [id number] [address] [place] [address] STATES OF [facility] GROSS DESCRIPTION A. VULVA BIOPSY Normal [facility] Comment on above: Order Comment: Speci men Type: TISSUE SPECIMEN Ordering Facility: [facility] Address: [address] [place] [address] Result Comment: Rece ived in formalin is a cylindrical segment of skin and subcutaneous tissue measuring 0.4 x 0.3 x 0.6 cm. On the skin surface there is a 0.4 cm, connelly-white, slightly elevated and depressed area. The specimen is bisected. Totally submitted in one cassette. Gross examination performed at [facility], [facility], [place] [address] KK November 14, 2023 1:33 AM Performed By: #### S #### [facility] IA [id number] CNPNoy 09-01-2023 CNPN Telephone (OBGYWM) ANETA LOGAN ([id number]) 1960 F Date Time Provider Department 09/01/23 ZOEY ARTEAGA OBSAVANAH During your visit today, we recorded the following information about you: Sonya Sandra RN 09/01/2023 10:53 AM Signed Last seen with CP on 06/17/23. Patient calling with c/o vaginal stinging pain for the last 4 days. Especially, when she voids. Denies s/s UTI. It's when the urine gets on her skin. Patient has been using the Clobetasol twice a day for the last 4 days without relief. Inquired if patient has a possible HSV outbreak. Patient is unable to see her labia, but does feel what could be a sore in one spot it hurts the most. Patient is needing RX for Clobetasol. Also asking if provider willing to send in Acyclovir RX. Orders pending. ALFRED Rodriguez Sara, MD 09/01/2023 10:59 AM Signed Chart reviewed and rx's sent Schedule follow up with CP to see if lichen symptoms improved and discuss suppressive therapy for herpes if having frequent outbreaks Zuleyma Carlos RN 09/01/2023 11:32 AM Signed Pt notified and scheduled. Zuleyma Carlos RN Allergies As of Date: 09/01/2023 Noted Allergy Reaction BACTRIM (SULFAMETHOXAZOLE-TRIME TH*07/24/2005 2 - Rash Date Reviewed: 06/17/2023 Reviewed by: Shira Winn MA - Fully Assessed Reason for Visit: Vaginal Problem [117] Order(s):clobetasol (TEMOVATE) 0.05 % creamApply to affected area twice weekly.Disp: 45 gRfl: 0 acyclovir (ZOVIRAX) 400 mg tabletTake 2 tablets by mouth two times a day for 5 days.Disp: 14 tabletRfl: 0 Prescriptions as of 09/01/2023 - clobetasol (TEMOVATE) 0.05 % cream Apply to affected area twice weekly. - acyclovir (ZOVIRAX) 400 mg tablet Take 2 tablets by mouth two times a day for 5 days. - predniSONE (DELTASONE) 10 mg tablet Take 6 tablets daily for 5 days, then 5 tablets for one day, then 4 tablets for one day, then 3 tablets for one day, then 2 tablets for one day, then 1 tablet for one day. Problem List As Of Date 09/01/2023 Noted Resolved Family history of colon cancer in mother [Z80.0]12/13/2014 Prescriptions ordered this encounter Disp Refills Start End CLOBETASOL 0.05 % TOPICAL CREAM 45 g 0 09/01/2023 Sig: Apply to affected area twice weekly. ACYCLOVIR 400 MG TABLET 14 t* 0 09/01/2023 09/06/2023 Route: ORAL Sig: Take 2 tablets by mouth two times a day for 5 days. Medications Discontinued During This Encounter Prescriptions - acyclovir (ZOVIRAX) 400 mg tablet (Discontinued) Take 1 tablet by mouth two times a day for 7 days. - clobetasol (TEMOVATE) 0.05 % cream (Discontinued) Apply to affected area two times a day. Encounter Status:Closed by ZULEYMA CARLOS on 09/01/23 Normal [facility] BACTERIAL VAGINOSIS NAATon 1 Lactobacillus crispatus+gasseri +jensenii + Gardnerella vaginalis + Atopobium vaginae rRNA SUKUMAR+probe Ql (Vag fld) Negative Normal Negative for bacterial vaginosis [facility] Comment on above: Order Comment: Speci men Type: SWAB Ordering Facility: [facility] Address: [address] [place] [address] Performed By: #### Haylee VAMP, CVTV #### [facility] CLIA [id number] [address] [place] [address] [place] GEETA/TRICHOMONAS NAATon 1 C. glabrata RNA SUKUMAR+probe Ql (Vag fld) Negative Normal Negative for Geeta glabrata [facility] Comment on above: Order Comment: Speci men Type: SWAB Ordering Facility: [facility] Address: [address] [place] [address] Performed By: #### Haylee VAMP, CVTV #### [facility] CLIA [id number] [address] [place] [address] [place] Geeta sp DNA SUKUMAR+probe Ql (Vag fld) Negative Normal Negative for Geeta species [facility] Comment on above: Order Comment: Speci men Type: SWAB Ordering Facility: [facility] Address: [address] [place] [address] Performed By: #### Haylee VAMP, CVTV #### [facility] CLIA [id number] [address] [place] [address] [place] T. vaginalis DNA SUKUMAR+probe Ql (Unsp spec) Negative Normal Negative for Trichomonas vaginalis by amplification [facility] Comment on above: Order Comment: Speci men Type: SWAB Ordering Facility: [facility] Address: [address] [place] [address] Performed By: #### Haylee VAMP, CVTV #### [facility] CLIA [id number] [address] [place] [address] [place] CNOVon 06-17-2023 CNOV Office Visit (OBGYWM ) ANETA LOGAN ([id number]) 1960 F Date Time Provider Department 06/17/23 10:45 AM ROMELIA BARNETT OBGYWLukas During your visit today, we recorded the following information about you: Blood pressure Weight Height 130/80 99.7 kg 1.518 m Romelia Barnett APRN.CN 06/17/2023 11:53 AM Signed Supervisory Aide offered: Patient declines. Aneta Logan is a 62 year old female new to office, who presents for problem visit of vaginal irritation with HSV outbreak. She is a transfer patient from [place]. HPI: HSV outbreak last week and took oral acyclovir. Reports area on outside of vagina is still painful and thinks she still has lesions. It hurts to touch the area. Reports having 3-4 outbreaks a year. Previous [employer] prescribed a cream that she is using as needed which helps the area to feel better. She is having pruritis on outside and inside of vagina. She reports itching increased at night and is breaking skin open at times. Patient is menopausal and has a history of partial hysterectomy over 10 years ago. OB History T0 L3 SAB0 IAB0 Ectopic0 Multiple0 Live Births0 REVIEW OF SYSTEMS Abdomen: No bloating, early satiety, indigestion, or increased flatulence. No abdominal pain, nausea, vomiting, diarrhea, or constipation. Bladder: No dysuria, gross hematuria, urinary frequency, urinary urgency, or incontinence. Breast: No breast lumps, nipple d/c, overlying skin changes, redness or skin retraction. Expanded ROS: N/A Allergies and current medication updated:Yes EXAM: BP 130/80 Ht 4' 11.75 (1.52m) Wt 219 lb 12.8 oz (99.7kg) BMI 43.27 kg/(m2). GENERAL: pleasant, female in no apparent distress HEENT: Normocephalic and atraumatic NECK: Supple and full range of motion DERMATOLOGY: Normal BREAST: deferred CHEST: Normal inspiratory effort ABDOMEN: Deferred PELVIC: Skin is open in some areas. No HSV lesions visualized. Areas of white, atrophic plaques on bilateral labial majora and minora that extend into perianal region and around anus. Skin is excoriated. BIMANUAL: uterus surgically absent and deferred NEURO: alert and oriented x3,exam grossly non-focal EXTREMITIES: normal ASSESSMENT/PLAN: 1. Vaginal itching - ICD9: 698.1, ICD10: N89.8 (primary diagnosis) - BACTERIAL VAGINOSIS NAAT - GEETA/TRICHOMONAS NAAT 2. Anogenital lichen sclerosus - ICD9: 701.0, ICD10: L90.0 - Discussed diagnosis cannot formally be made without skin biopsy - Patient already using Clobetasol cream to area as needed. Will increase frequency to BID x 4 weeks, every day x 4 weeks and EOD x 4 weeks - Vulvar hygiene reviewed- patient currently washing with DIAL body wash- advised to only use Dove Sensitive to area - Will call in for refill on cream as needed - RTO as needed or for yearly or if s/s worsen will complete skin biopsy LAY Diallo Courtney, APRN.CNM 06/17/2023 11:16 AM Signed DOVE SENSITIVE- DYE AND SCENT FREE BAR OF SOAP Allergies As of Date: 06/17/2023 Noted Allergy Reaction BACTRIM (SULFAMETHOXAZOLE-TRIME TH*07/24/2005 2 - Rash Date Reviewed: 06/17/2023 Reviewed by: Shira Winn MA - Fully Assessed Reason for Visit: New Patient [172] Cmt: Herpes outbreak pain Primary Visit Diagnosis:Vaginal itching [N89.8] Other Visit Diagnosis:Anogenital lichen sclerosus [L90.0] Order(s):BACTERIAL VAGINOSIS NAAT [SQBVAMP] Order #: [id number]. #:[id number] GEETA/TRICHOMONAS NAAT [SQCVTV] Order #: [id number]. #:[id number] Prescriptions as of 06/17/2023 - clobetasol (TEMOVATE) 0.05 % cream Apply to affected area two times a day. - acyclovir (ZOVIRAX) 400 mg tablet Take 1 tablet by mouth two times a day for 7 days. - predniSONE (DELTASONE) 10 mg tablet Take 6 tablets daily for 5 days, then 5 tablets for one day, then 4 tablets for one day, then 3 tablets for one day, then 2 tablets for one day, then 1 tablet for one day. Problem List As Of Date 06/17/2023 Noted Resolved Family history of colon cancer in mother [Z80.0]12/13/2014 Other instructions from your clinician: DOVE SENSITIVE- DYE AND SCENT FREE BAR OF SOAP Encounter Status:[facility]OBGYWM[facility] ANETA LOGAN ([id number]) 1960 F Date Time Provider Department 06/13/23 BUSHRA BORGES OBMADISONWLukas During your visit today, we recorded the following information about you: Zuleyma Carlos RN 06/13/2023 10:19 AM Signed Patient called reporting acyclovir that was prescribed 06/06 by CP has not been effective for her current outbreak. She will take her last two tablets today. patient feels valtrex has been more effective in the past and asking if it can be ordered. ALFRED Chaidez Lindsey RN 06/13/2023 10:24 AM Signed See phone note on 06/06. 06/06/23 12:04 PM Note Additional information obtained from patient. She is a transfer of care from [place] and was receiving Acyclovir Rx through them. Patient states she started with a flare up a couple of days ago. She only takes the medication when she has a flare up, does not take it daily. Asking if a prescription can be sent to pharmacy for her. She has an appointment on 06/27 to establish care. According to outside records patient was given an Rx for Acyclovir 800 mg, 20 tablets. Patient states she was just taking 1 tablet for 2 or 3 days when she was having an outbreak. Will need to call patient back. Bushra Cartwright RN, APRN.CNM 06/13/2023 11:41 AM Signed I apologize but since patient is not established we can't give a prescription. If we can get her in sooner for a visit. Thanks, Bushra Borges APRN.Sena Coello RN 06/13/2023 11:52 AM Signed Patient notified and voiced understanding. Sooner appointment given. 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 - predniSONE (DELTASONE) 10 mg tablet Take 6 tablets daily for 5 days, then 5 tablets for one day, then 4 tablets for one day, then 3 tablets for one day, then 2 tablets for one day, then 1 tablet for one day. Problem List As Of Date 06/13/2023 Noted Resolved Family history of colon cancer in mother [Z80.0]12/13/2014 Encounter Status:Closed by SENA GARZA RN on 06/13/23 [facility] Rosy 06-06-2023 RICHIE Telephone (OBGYWM) ANETA LOGAN ([id number]) 1960 F Date Time Provider Department 06/06/23 NURSE AQUATIC PHYSIOTHERAPIST [facility] O[facility] During your visit today, we recorded the following information about you: Alma Delia Wang 06/06/2023 11:01 AM Signed New patient requesting a refill of her 800mg ACYCLOVIR medication has had a flare up of HSV, currently has only 1 pill left. Zuleyma Carlos RN 06/06/2023 11:23 AM Signed Left message for patient to call office. When patient calls back triage further. ALFRED CHAIDEZ Lindsey RN 06/06/2023 12:04 PM Signed Additional information obtained from patient. She is a transfer of care from [place] and was receiving Acyclovir Rx through them. Patient states she started with a flare up a couple of days ago. She only takes the medication when she has a flare up, does not take it daily. Asking if a prescription can be sent to pharmacy for her. She has an appointment on 06/27 to establish care. According to outside records patient was given an Rx for Acyclovir 800 mg, 20 tablets. Patient states she was just taking 1 tablet for 2 or 3 days when she was having an outbreak. Will need to call patient back. Romelia Goldberg RN, APRN.CNM 06/06/2023 12:37 PM Signed Rx sent for Acyclovir 400 mg PO BID x 7 days. Romelia Barnett APRN.Millie Morillo RN 06/06/2023 12:42 PM Signed Left message for patient to return phone call Leydi Burris LPN 06/06/2023 12:54 PM Signed Pt returned call and was given below message and will check pharmacy later today. Leydi Burris LPN Allergies As of Date: 06/06/2023 Noted Allergy Reaction BACTRIM (SULFAMETHOXAZOLE-TRIME TH*07/24/2005 2 - Rash Date Reviewed: 08/17/2017 Reviewed by: Arti King (Home Performance Laborer), ANESTHETIST.MARGARETTE - Fully Assessed Order(s):acyclovir (ZOVIRAX) 400 mg tabletTake 1 tablet by mouth two times a day for 7 days.Disp: 14 tabletRfl: 0 Prescriptions as of 06/06/2023 - acyclovir (ZOVIRAX) 400 mg tablet Take 1 tablet by mouth two times a day for 7 days. - predniSONE (DELTASONE) 10 mg tablet Take 6 tablets daily for 5 days, then 5 tablets for one day, then 4 tablets for one day, then 3 tablets for one day, then 2 tablets for one day, then 1 tablet for one day. Problem List As Of Date 06/06/2023 Noted Resolved Family history of colon cancer in mother [Z80.0]12/13/2014 Prescriptions ordered this encounter Disp Refills Start End ACYCLOVIR 400 MG TABLET 14 t* 0 06/06/2023 06/13/2023 Route: ORAL Sig: Take 1 tablet by mouth two times a day for 7 days. Encounter Status:Closed by ROMELIA BARNETT on 06/06/23 Normal [facility] Encounters Encounter Date Encounter Type Care Provider Facility Start: 11-21-2023 Telephone encounter Krunal Astorga MD Work Phone: OB/Gynecology Comment on above: Results Start: 11-13-2023 End: 11-13-2023 ambulatory CASANDRA PARKER Facility:[facility] Start: 06-17-2023 End: 06-17-2023 ambulatory ROMELIA BARNETT Facility:[facility] Start: 06-13-2023 Telephone encounter Bushra reeves APRN.CNM Work Phone: OB/Gynecology Comment on above: Medication Problem Start: 06-06-2023 Telephone encounter Nurse Ob/G yn [facility] Work Phone: OB/Gynecology Plan of Treatment Date Care Activity Detail Author Start: 04-18-2024 Influenza vaccination Influenz a Vaccine (Season Ended) [facility] Start: 08-18-2023 Behavioral Health Screening Behavioral Health Screening [facility] Start: 04-18-2023 Covid-19 Vaccine ( season) Covid-19 Vaccine ( season) [facility] Start: 04-18-2023 Influenza vaccination Influenza Vacc ine (#1) [facility] Start: 08-18-2022 Depression Assessment Depression Ass essment [facility] Start: 2021 RSV Vaccine (1 - 1-d ose 60+ series) RSV Vaccine (1 - 1-dose 60+ series) [facility] Start: 2011 Shingrix Vaccine (1 of 2) Shingrix V accine (1 of 2) [facility] Start: 2006 Cologuard (FIT-DNA) Cologuard (FIT-D NA) [facility] Start: 2006 Colonoscopy Colonoscopy [facility] Start: 2006 Colorectal Cancer Screening Colorectal Cancer Screening [facility] Start: [address] Colonography [facility] Start: 2006 Diabetes Screening Diabetes Screenin g [facility] Start: 2006 Fecal Occult Blood Fecal Occult Bloo d [facility] Start: 2006 Lipid 1996 panel - S delmar or Plasma Lipid Screening [facility] Start: 2006 Lipid panel Lipid Screening [facility] Start: 2006 Screening for malign ant neoplasm of colon [facility] Start: 2006 Sigmoidoscopy Sigmoidoscopy [facility] Start: 2001 Mammography Mammogram Screening [facility] Start: 2001 Screening for malign ant neoplasm of breast Mammogram Screening [facility] Start: 1991 HPV Testing HPV Testing [facility] Start: 1991 Screening for malign ant neoplasm of cervix HPV Testing [facility] Start: 1982 Pap Testing Pap Testing [facility] Start: 1982 Screening for malign ant neoplasm of cervix Pap Testing [facility] Start: 1980 Urine microalbumin profile DTa P,Tdap,Td Vaccine (1 - Tdap) [facility] Start: 1979 Hepatitis C Screening Hepatitis C [facility] Start: 1979 Hepatitis C screening Hepatitis C [facility] Start: 1979 HIV Screening HIV Screening [facility] Start: 1979 HIV screening HIV Screening [facility] Start: 02-03-1961 Covid-19 Vaccine (#1) Covid-19 Vacci ne (#1) [facility] Immunizations Immunization Date Immunization Notes Care Provider Fa cility 06-08-2022 influenza virus vacc ine, unspecified formulation Krunal Astorga MD Work Phone: [facility] Payers Date Payer Category Payer Unknown [employer] PPO OOS [id number] 2019-Present [phone] [address] [place] [address] PPO [id number] 2019 Unknown [id number] Social History Date Type Detail Facility Start: 12-13-2014 End: 06-17-2023 Tobacco smoking status NHIS Never smoked tobacco [facility] Start: 08-17-2017 End: 11-13-2023 Alcohol intake Current non-drinker of alcohol (finding) [facility] Start: 07-14-2020 End: 06-17-2023 History of Social function [facility] Start: 07-14-2020 End: 06-17-2023 Tobacco use panel [facility] National Score (1-10 0), lower number is lower risk Not on file [facility] Start: 1960 Sex Assigned At Not on file [facility] Start: 06-17-2023 Tobacco use and exposure Smoke less tobacco non-user [facility] Note 11-24-2023 Telephone Encounter - Leonela Meyers RN - 11/24/2023 10:52 AM EDTTelephone Encounter - Leonela Meyers RN - 11/21/2023 11:02 AM EDT Note Date & Type Note Facility 11-24-2023 Miscellaneous Notes Formattin g of this note might be different from the original. Patient notified. Leonela Meyers RN Left message for patient to call office. Leonela Meyers RN ----- Message from Krunal Astorga MD sent at 11/21/2023 10:49 AM EDT ----- Please notify patient that results are c/w Lichen sclerosis. Use clobetasol as we discussed at her appt. documented in this encounter [facility] Progress note 11-13-2023 Note Date & Type Note Facility 11-13-2023 Note HNO ID: [id number] Author: KRUNAL VASQUES MD Service: ? Author Type: Physician Type: Progress Notes Filed: 11/13/2023 15:53 Note Text: Supervisory Aide offered: Patient declines. Aneta Logan is a 63 year old female who presents for problem visit of vaginal itching for a couple days. HPI: Reports increased vulvar, vaginal itching for the past couple days. Reports some pain from the persistent scratching. Denies breaking skin with scratching. Has been using leftover steroid cream from lichen sclerosis that seems to be helping. Has noticed some dysuria when urinating irritates the inflamed areas. Doesn't feel any blisters or masses in her vulvar area. Ibuprofen helps a little. Reports that she is still sexually active, sometimes has pain and bleeding with intercourse. Pt reports no changes in soaps or detergents. Pt reports she feels it is HSV outbreak. Pt states has never had biopsy of LS to confirm. OB History T0 L3 SAB0 IAB0 Ectopic0 Multiple0 Live Births0 Butcher Assistant History LMP: Hysterectomy Age at Menarche: Age at First : Age at Menopause: Butcher Assistant History Comments: Sexual Activity: Not Currently; Male Contraception: Surgical No past medical history on file. PAST SURGICAL HISTORY Procedure Laterality Date HYSTERECTOMY HX abdominal/partial FAMILY HISTORY Problem Relation Age of Onset Cancer Mother colon/lung Heart Father No Known Problems Maternal Grandmother No Known Problems Maternal Grandfather No Known Problems Paternal Grandmother No Known Problems Paternal Grandfather Social History Tobacco Use Smoking status: Never Smokeless tobacco: Never Vaping Use Vaping Use: Never used Substance Use Topics Alcohol use: No Drug use: No Current Outpatient Medications Medication Sig clobetasol (TEMOVATE) 0.05 % cream Apply to affected area twice weekly. acyclovir (ZOVIRAX) 400 mg tablet Take 2 tablets by mouth two times a day for 5 days. predniSONE (DELTASONE) 10 mg tablet Take 6 tablets daily for 5 days, then 5 tablets for one day, then 4 tablets for one day, then 3 tablets for one day, then 2 tablets for one day, then 1 tablet for one day. (Patient not taking: Reported on 06/17/2023) No current facility-administered medications for this visit. Allergies As of Date: 11/13/2023 Allergen Noted Reaction BACTRIM [SULFAMETHOXAZOLE-TRIMETH*07/24/2005 Rash Fully Assessed 11/13/2023 REVIEW OF SYSTEMS Abdomen: No bloating, early satiety, indigestion, or increased flatulence. No abdominal pain, nausea, vomiting, diarrhea, or constipation. Bladder: positive for some dysuria. No hematuria. Expanded ROS: GENERAL: Negative for fever Allergies and current medication updated:Yes EXAM: BP 132/86 Wt 219 lb 3.2 oz (99.4kg) GENERAL: pleasant, female in no apparent distress HEENT: Normocephalic, atraumatic, mucus membranes moist, and no lesions DERMATOLOGY: Normal, without lesions, non-icteric, and non-hirsute PELVIC: external genitalia normal, normal Bartholin's glands, urethra, [place]'s glands, Significant hypopigmentation of Vulva from clitoris- labia minora down around anus and onto groin - some ulcerations. On left labia minora there are two healing ulcerations c/w HSV. Has areas of ecchymosis diffuse on tissue. NEURO: alert and oriented x3,exam grossly non-focal EXTREMITIES: normal ASSESSMENT AND PLAN: Encounter Diagnosis ICD-10-CM 1. Vulvar dermatitis L30.9 2. Ulceration of vulva N76.6 3. Vulvar itching L29.2 4. HSV (herpes simplex virus) anogenital infection A60.9 5. Discussed Vulvar biopsy with patient - agreeable today. 6. Suppression therapy d/w patient- valtrex ordered. 7. Lidocaine gel ordered 8. Advised on proper use of clobetasol BID x 6 weeks then use at least weekly , avoid vulvar irritants. Hygiene reviewed. Medical Decision Making: Problems: Moderate: 2+ stable chronic illnesses Data: Unique test(s) ordered: 1 Risk: Moderate: Drug management and Moderate risk from testing/treatment Medical Decision Making Level: 4 - Moderate Krunal Hernandez MD Aneta Logan is a 63 year old female who presents today for a vulvar biopsy. Indication: history of lichen sclerosis, UNIVERSAL PROTOCOL / SAFETY CHECKLIST Procedure to be Performed: vulvar biopsy Sign In: A Moment of CARE was completed. Personnel directly involved with the procedure wore the appropriate PPE (Personal Protective Equipment). Patient/Surrogate Stated/Verified: PATIENT VERIFIED(optional for EMERGENT procedures): Patient name, Date of , Relevant allergies, and The intended procedure Time Out Communication: Intended patient and procedure match the source documents. Consent documented and matches the intended procedure. Sign Out: SIGN OUT (optional for EMERGENT procedures): All specimen containers correctly labeled. Krunal Hernandez MD PROCEDURE NOTE: GROSS LESIONS: Yes, see Abov (more content not included)... [facility] Progress note 06-17-2023 Note Date & Type Note Facility 06-17-2023 Note HNO ID: [id number] Author: Romelia Barnett APRN.CNM Service: ? Author Type: Star Route Mail Driver Type: Progress Notes Filed: 06/17/2023 11:53 AM Note Text: Supervisory Aide offered: Patient declines. Aneta Logan is a 62 year old female new to office, who presents for problem visit of vaginal irritation with HSV outbreak. She is a transfer patient from [place]. HPI: HSV outbreak last week and took oral acyclovir. Reports area on outside of vagina is still painful and thinks she still has lesions. It hurts to touch the area. Reports having 3-4 outbreaks a year. Previous [employer] prescribed a cream that she is using as needed which helps the area to feel better. She is having pruritis on outside and inside of vagina. She reports itching increased at night and is breaking skin open at times. Patient is menopausal and has a history of partial hysterectomy over 10 years ago. OB History T0 L3 SAB0 IAB0 Ectopic0 Multiple0 Live Births0 REVIEW OF SYSTEMS Abdomen: No bloating, early satiety, indigestion, or increased flatulence. No abdominal pain, nausea, vomiting, diarrhea, or constipation. Bladder: No dysuria, gross hematuria, urinary frequency, urinary urgency, or incontinence. Breast: No breast lumps, nipple d/c, overlying skin changes, redness or skin retraction. Expanded ROS: N/A Allergies and current medication updated:Yes EXAM: BP 130/80 Ht 4' 11.75 (1.52m) Wt 219 lb 12.8 oz (99.7kg) BMI 43.27 kg/(m2). GENERAL: pleasant, female in no apparent distress HEENT: Normocephalic and atraumatic NECK: Supple and full range of motion DERMATOLOGY: Normal BREAST: deferred CHEST: Normal inspiratory effort ABDOMEN: Deferred PELVIC: Skin is open in some areas. No HSV lesions visualized. Areas of white, atrophic plaques on bilateral labial majora and minora that extend into perianal region and around anus. Skin is excoriated. BIMANUAL: uterus surgically absent and deferred NEURO: alert and oriented x3,exam grossly non-focal EXTREMITIES: normal ASSESSMENT/PLAN: 1. Vaginal itching - ICD9: 698.1, ICD10: N89.8 (primary diagnosis) - BACTERIAL VAGINOSIS NAAT - GEETA/TRICHOMONAS NAAT 2. Anogenital lichen sclerosus - ICD9: 701.0, ICD10: L90.0 - Discussed diagnosis cannot formally be made without skin biopsy - Patient already using Clobetasol cream to area as needed. Will increase frequency to BID x 4 weeks, every day x 4 weeks and EOD x 4 weeks - Vulvar hygiene reviewed- patient currently washing with DIAL body wash- advised to only use Dove Sensitive to area - Will call in for refill on cream as needed - RTO as needed or for yearly or if s/s worsen will complete skin biopsy Romelia Barnett APRN.CNM [facility] Note 06-13-2023 Telephone Encounter - Sena Garza RN - 06/13/2023 11:52 AM EDTTelephone Encounter - Bsuhra Borges APRN.CNM - 06/13/2023 11:40 AM EDT Note Date & Type Note Facility 06-13-2023 Miscellaneous Notes Formattin g of this note might be different from the original. Patient notified and voiced understanding. Sooner appointment given. Sena Garza RN I apologize but since patient is not established we can't give a prescription. If we can get her in sooner for a visit. Thanks, Bushra Borges APRN.CNM See phone note on 06/06. 06/06/23 12:04 PM Note Additional information obtained from patient. She is a transfer of care from [place] and was receiving Acyclovir Rx through them. Patient states she started with a flare up a couple of days ago. She only takes the medication when she has a flare up, does not take it daily. Asking if a prescription can be sent to pharmacy for her. She has an appointment on 06/27 to establish care. According to outside records patient was given an Rx for Acyclovir 800 mg, 20 tablets. Patient states she was just taking 1 tablet for 2 or 3 days when she was having an outbreak. Will need to call patient back. Sena Garza RN Patient called reporting acyclovir that was prescribed 06/06 by CP has not been effective for her current outbreak. She will take her last two tablets today. patient feels valtrex has been more effective in the past and asking if it can be ordered. Zuleyma Carlos RN documented in this encounter [facility] Note 06-06-2023 Telephone Encounter - Leydi Burris LPN - 06/06/2023 12:53 PM EDTTelephone Encounter - Millie Reeves RN - 06/06/2023 12:41 PM EDTTelephone Encounter - Sena Garza RN - 06/06/2023 11:56 AM EDT Note Date & Type Note Facility 06-06-2023 Miscellaneous Notes Formattin g of this note might be different from the original. Pt returned call and was given below message and will check pharmacy later today. Leydi Burris LPN Left message for patient to return phone call Rx sent for Acyclovir 400 mg PO BID x 7 days. Romelia Barnett APRN.CNM Additional information obtained from patient. She is a transfer of care from [place] and was receiving Acyclovir Rx through them. Patient states she started with a flare up a couple of days ago. She only takes the medication when she has a flare up, does not take it daily. Asking if a prescription can be sent to pharmacy for her. She has an appointment on 06/27 to establish care. According to outside records patient was given an Rx for Acyclovir 800 mg, 20 tablets. Patient states she was just taking 1 tablet for 2 or 3 days when she was having an outbreak. Will need to call patient back. Sena Garza RN Left message for patient to call office. When patient calls back triage further. ZULEYMA CARLOS RN New patient requesting a refill of her 800mg ACYCLOVIR medication has had a flare up of HSV, currently has only 1 pill left. 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 [facility] Summary Purpose Family History No Family History Records Found Advance Directives No Advanced Directives Records Found Additional Source Comments Source Comments (unrecognize d section and content) In the event this informatio n is protected by the Federal Confidentiality of Alcohol and Drug Abuse Patient Records regulations: The Federal rules restrict any use of the information to criminally investigate or prosecute any alcohol or drug abuse patient.[facility] the event this information is protected by the Federal Confidentiality of Alcohol and Drug Abuse Patient Records regulations: The Federal rules restrict any use of the information to criminally investigate or prosecute any alcohol or drug abuse patient.[facility] the event this information is protected by the Federal Confidentiality of Alcohol and Drug Abuse Patient Records regulations: The Federal rules restrict any use of the information to criminally investigate or prosecute any alcohol or drug abuse patient.[facility] Care Teams (unrecognized sec tion and content) Nnp Relationship Specialty Start Date End Date Casandra Parker PCP - General 07/26/05 Nnp Relationship Specialty Start Date End Date Casandra Parker PCP - General 07/26/05 Reason for Visit (unrecogniz ed section and content) Reason Comments Medication Problem Reason Comments Results INFORMATION SOURCE (unrecogn ized section and content) DATE CREATED AUTHOR 11/24/2023 [facility] FOR RECORDS PERTAINING TO PATIENTS WHO ARE OR HAVE BEEN ENROLLED IN A CHEMICAL DEPENDENCY/SUBSTANCEABUSE PROGRAM, SOME INFORMATION MAY BE OMITTED. This clinical summary was aggregated from multiple sources. Caution should be exercised in using it in the provision of clinical care. This summary normalizes information from multiple sources, and as a consequence, information in this document may materially change the coding, format and clinical context of patient data. In addition, data may be omitted in some cases. CLINICAL DECISIONS SHOULD BE BASED ON THE PRIMARY CLINICAL RECORDS. [facility] [facility]. provides no warranty or guarantee of the accuracy or completeness of information in this document.
== END 2024-06-14 19:13 | disposition home or self-care (01) ==
PROVIDERS: Emergency Provider Emergency Medicine; PCP Family Medicine; Visit Provider Emergency Medicine
DX: R10.9 Unspecified abdominal pain (principal); M17.0 Bilateral primary osteoarthritis of knee; N89.8 Other specified noninflammatory disorders of vagina; I10 Essential (primary) hypertension; M43.16 Spondylolisthesis, lumbar region; R51.9 Headache, unspecified; D64.9 Anemia, unspecified; M79.89 Other specified soft tissue disorders; Z79.82 Long term (current) use of aspirin; Z79.899 Other long term (current) drug therapy; Z96.651 Presence of right artificial knee joint; Z90.710 Acquired absence of both cervix and uterus
CPT/HCPCS: 74176; 80048; 81001; 85025; 93971; 99283; A4216

== ENCOUNTER 2024-06-17 14:05 | Observation (INO) | payer BC, SELFPAY ==
[2024-05-31 12:59] LABS: Absolute Lymphocyte Count 2.23 X10^3/uL (0.83-4.51); Absolute Neutrophil Count 6.9 X10^3/uL (2.0-7.7); Basophil# 0.05 X10^3/uL; Basophil% 0.5 % (0-1); Eosinophil# 0.17 X10^3/uL; Eosinophils% 1.7 % (0-5); Hemoglobin 11.2 g/dL (12.0-15.0); Lymphocyte # 2.23 X10^3/ul (0.83-4.51); Lymphocyte % 22.1 % (19-41); Mean Corp Hgb Conc 30.3 g/dL (32-36); Mean Corpuscular Hgb 28.6 pg (27.0-32.0); Mean Corpuscular Volume 94.4 fL (81-99); Mean Platelet Vol. 10.6 fl (6.2-12.0); Monocyte# 0.67 X10^3/uL; Monocyte% 6.6 % (0-10); NRBC Flagged by Analyzer 0 % (0-5); Neutrophil # 6.93 X10^3/uL (2.7-7.7); Neutrophil % 68.7 % (47-70); Platelet Count 358 K/mm3 (150-450); RBC Distribution Width CV 14.4 % (11.6-14.6); RBC Distribution Width SD 49.3 fl (35.1-43.9); Red Blood Count 3.92 M/mm3 (4.2-5.4); White Blood Count 10.1 K/mm3 (4.4-11.0)
[2024-05-31 13:24] LABS: Anion Gap 6 (5-15); BUN 22 mg/dL (7-18); BUN/Creat Ratio 32.3 RATIO (10-20); Calcium,Total 9.5 mg/dL (8.5-10.1); Chloride 104 mmol/L (98-107); Creatinine, Serum 0.68 mg/dL (0.55-1.02); EST Glomerular Filtration Rate 93 mL/min (>60); Est Glom Filt Rate - Afr Amer 112 mL/min (>60); Glucose 116 mg/dL (74-106); Sodium Level 140 mmol/L (136-145)
[2024-06-17] VITALS (12 sets, daily range): BP systolic 107–154; BP diastolic 60–99; PULSE 60–89; RESP 16–18; TEMP 36.1–36.8; O2SAT 92–100; BMI 45.8; BMI 47.6
[2024-06-17] MEDS: Acetaminophen 500 MG Tablet 1000 MG PO ×2 (10:29→21:49)
[2024-06-17] MEDS: Gabapentin 600 MG Tablet PO (10:29)
[2024-06-17] MEDS: Magnesium 1 GM over 15 mins IV (10:30)
[2024-06-17] MEDS: Lactated Ringers 1,000 ML 999 ML IV (10:30)
--- NOTE | 2024-06-17 10:54 | PRE.ANES_ITS ---
ASA Classification* ASA Classification ASA Classification: 3 (SEE WRITTEN PRE ANESTHESIA RECORD FOR FULL ASSESSMENT) Assessment & Plan Anesthesia* Anesthesia Assessment Anesthesia Assessment: Discussed sedation and/or anesthesia options, risks, benefits, and alternatives with patient/parents/legal guardian/POA. Questions invited. The patient/parents/legal guardian/POA seems to understand and agrees to proceed with anesthesia plan. Reviewed the physical assessment, medical history, allergy history and patient home medications list prior to surgery/procedure/anesthetic and documented any changes. Performed airway and anesthesia risk assessments. Anesthesia Type Anesthesia Type: MAC (SEE WRITTEN PRE ANESTHESIA RECORD FOR FULL ASSESSMENT), Spinal (SEE WRITTEN PRE ANESTHESIA RECORD FOR FULL ASSESSMENT) and Block (SEE WRITTEN PRE ANESTHESIA RECORD FOR FULL ASSESSMENT) Anesthesia Focused Assessment* Temperature: 97.7 F Pulse Rate: 89 Blood Pressure: 154/80 Respiratory Rate: 16 Pulse Ox: 100 Airway Assessment Mouth opens: >3 cm Mallampati Score: II Focused Labs Anesthesia Preop lab: CBC WBC 9.5 K/mm3 (4.4-11.0) 06/14/24 16:55 RBC 4.17 M/mm3 (4.2-5.4) L 06/14/24 16:55 Hgb 11.7 g/dL (12.0-15.0) L 06/14/24 16:55 Hct 39.1 % (37-47) 06/14/24 16:55 Plt Count 384 K/mm3 (150-450) 06/14/24 16:55 CHEMISTRY Potassium 3.8 mmol/L (3.5-5.1) 06/14/24 16:55 Sodium 141 mmol/L (136-145) 06/14/24 16:55 Magnesium 2.0 mg/dL (1.6-2.6) 05/31/24 12:47 BUN 27 mg/dL (7-18) H 06/14/24 16:55 Creatinine 0.70 mg/dL (0.55-1.02) 06/14/24 16:55 Glucose 106 mg/dL (74-106) 06/14/24 16:55 POC Glucose 139 mg/dL (74-106) H 02/12/24 10:37 TSH 3.39 uIU/mL (0.358-3.74) 09/03/16 07:15 COAG Pre-Assessment Diagnosis/Proposed Procedure Planned Operative Procedure(s): ROBOTIC ASSISTED LEFT TOTAL KNEE ARTHROPLASTY Anesthesia History Anesthesia History - [employer]: Anesthesia History - [employer] Hx Hospitalization No 05/25/24 11:40 Any Problems With Anesthesia No 05/25/24 11:40 Cholinesterase deficiency No 05/25/24 11:40 You/Your Family Experience No 05/25/24 11:40 fever (hyperthermia) with Relationship Recent Exposure to Contagious No 06/17/24 10:35 Disease Does patient have nerve No 05/25/24 11:40 stimulator Patient instructed to have device shut off --Does patient have Pacemaker No 06/17/24 10:35 or ICD? When Was Last Pacemaker Check QUESTION #4 FULL TEXT: You/Your Family Experience fever (hyperthermia) with Anesthesia Last Oral Intake Last Oral intake: Last Oral Intake NPO since 08:00 06/17/24 10:35 Meds taken in AM with sips of Yes 06/17/24 10:35 water? Meds patient instructed to metoprolol 06/17/24 10:35 take am of surgery PONV PONV - [employer]: PONV - [employer] Female Yes 05/25/24 11:40 HX of Motion Sickness No 05/25/24 11:40 HX of N/V After Surgery No 05/25/24 11:40 Non-Smoker Yes 05/25/24 11:40 Duration of Surgery greater Yes 05/25/24 11:40 than 60 minutes Number of Risk Factors 3 05/25/24 11:40 PONV Score Moderate Risk 05/25/24 11:40 Height & Weight Height & Weight: Anesthesia: Height & Weight Height 4 ft 9 in 06/17/24 10:35 Weight: 96 kg 06/17/24 10:35 Body Mass Index (BMI) 45.8 06/17/24 10:35 Respiratory Assessment Respiratory Assessment - [employer]: Respiratory Tract Infection Hx - [employer] Hx Respiratory Tract Infection No 05/25/24 11:40 STOP Sleep Apnea STOP Sleep Apnea - [employer]: STOP Sleep Apnea - [employer] Hx Hypertension Yes: CONTROLLED ON MED 05/25/24 11:40 Hx Sleep Apnea No 05/25/24 11:40 CPAP BIPAP Do you snore loudly (louder Yes 05/25/24 11:40 than talking or can be heard Do you often feel tired/ Yes 05/25/24 11:40 fatigued/ sleepy during daytime? Has anyone observed you stop No 05/25/24 11:40 breathing during sleep? STOP Results Positive 05/25/24 11:40 QUESTION #5 FULL TEXT : Do you snore loudly (louder than talking or can be heard through closed doors)? Tobacco Use History Tobacco Use History - [employer]: Tobacco Use History - [employer] Tobacco Use Smoking Status Never smoker 06/14/24 15:03 Hx Tobacco Use No 05/25/24 11:40 Years Smoking Packs Smoked per Day Smoking Cessation Date was within the last 15 years Hx Smoking Cessation Date Hx Smoking Cessation Counseling Hematologic Medial History Hematologic Hx - [employer]: Hematologic Medical Hx - shipping coordinator Hx of Blood Transfusion No 05/25/24 11:40 Hx of Transfusion in last 3 No 05/25/24 11:40 Months Date of Last Transfusion (if within last 3 months) Ever experience any problems No 05/25/24 11:40 with transfusion(s)? Specify any problems Hx of Preganancy in last 3 No 05/25/24 11:40 Months Nurse Filling Out Transfusion DSCHRIBER 05/25/24 11:40 & Questions: Date: 05/25/24 05/25/24 11:40 Time: 11:42 05/25/24 11:40 Patient unable to answer at this time (ie. confused, unrespo /Reproduction History /Reproductive History - [employer]: /Reproductive Hx- [employer] Hx Now No 05/25/24 11:40 Gestational Age (in weeks): EDC: Hx Hx Para Hx Section SAB No 05/25/24 11:40 Active Medications Active Medications: Current Medications Generic Name Dose Route Start Last Admin Trade Name Freq PRN Reason Stop Dose Admin Acetaminophen 1,000 mg 06/17/24 13:00 06/17/24 10:29 Acetaminophen 500 Mg Tablet PO 06/17/24 13:01 1,000 mg X1 ONE Administration Sodium Chloride 77.4 ml/ 0 ml 06/17/24 13:00 Ropivacaine 200 mg/ OPERA.SITE 06/17/24 13:01 Epinephrine HCl 0.6 mg/ X1 ONE Ketorolac Tromethamine 30 mg/ Morphine Sulfate 5 mg Dexamethasone Sodium Phosphate 10 mg 06/17/24 13:00 Dexamethasone 10 Mg/Ml Vial IV 06/17/24 13:01 X1 ONE Gabapentin 600 mg 06/17/24 13:00 06/17/24 10:29 Gabapentin 600 Mg Tablet PO 06/17/24 13:01 600 mg X1 ONE Administration Lactated Ringer's 1,000 mls @ 999 mls/hr 06/17/24 13:00 06/17/24 10:30 IV 06/17/24 14:00 999 mls/hr .Q1H1M АННА Administration Tranexamic Acid 1,000 mg/ 110 mls @ 660 mls/hr 06/17/24 13:00 Sodium Chloride IV 06/17/24 13:09 X1 ONE Tranexamic Acid 1,000 mg/ 110 mls @ 660 mls/hr 06/17/24 13:30 Sodium Chloride IV 06/17/24 13:39 X1 ONE Lactated Ringer's 1,000 mls @ 999 mls/hr 06/17/24 14:00 IV 06/17/24 15:00 .Q1H1M АННА Lactated Ringer's 1,000 mls @ 125 mls/hr 06/17/24 15:00 IV 06/17/24 22:59 .Q8H АННА Cefazolin Sodium 2 gm/ N/A 20 mls @ 400 mls/hr 06/17/24 13:00 IV 06/17/24 13:02 PREOP ONE Magnesium Sulfate 1 gm/ 102 mls @ 408 mls/hr 06/17/24 13:00 06/17/24 10:30 Dextrose IV 06/17/24 13:14 408 mls/hr X1 ONE Administration Insulin Human Lispro 1 - 6 unit 06/17/24 13:00 Insulin Lispro 100 Unit/Ml Insuln.Pen SC 06/17/24 19:00 Q4H PRN PRN BG>/= 180, SEE PROTOCOL Protocol PFSH Medical History History of pain when walking History of edema Post-menopausal Arthritis Non-smoker Shortness of breath on exertion History of stress test Cardiology follow-up encounter Abnormal EKG Abnormal stress test Arthritis of both knees Hypertension Home Medications ?Medication ?Instructions ?Recorded ?Last Taken ?Type ibuprofen 100 mg tablet (Advil) 200 mg PO PRN 08/16/17 Unknown History valacyclovir 500 mg tablet 500 mg PO DAILY 12/12/23 06/16/24 History metoprolol succinate 50 mg 50 mg PO DAILY #60 tabs 12/17/23 06/17/24 Rx tablet,extended release 24 hr (Toprol XL) acetaminophen 500 mg tablet 1,000 mg PO Q8 06/17/24 06/16/24 History Allergy/AdvReac Type Severity Reaction Status Date / Time sulfamethoxazole (From Allergy Severe Unknown Verified 06/17/24 10:32 Bactrim) trimethoprim (From Bactrim) Allergy Severe Unknown Verified 06/17/24 10:32 Family History Mother CAD (coronary artery disease) Diabetes Surgical History Hx of total knee arthroplasty History of cardiac catheterization History of partial hysterectomy Social History Smoking Status: Never smoker alcohol intake: never Review of Systems (Anesthesia) ROS Narrative System reviewed and no additional complaints, except as documented.
[2024-06-17] MEDS: Cefazolin 2 GM in Syringe IV (11:38)
[2024-06-17] MEDS: TXA 1000mg in NS100 100ml (IVPB at Incision) 660 MG IV (11:50)
[2024-06-17] MEDS: dexAMETHasone 10 MG/ML Vial IV (11:50)
[2024-06-17 11:51] LABS: Bedside Glucose 111 mg/dL (74-106)
--- NOTE | 2024-06-17 12:00 | KNEE_PTH ---
PATIENT: RACHELL VELASCO LOC: [facility]3 U#:[id number] AGE/SX: 63/F ROOM: [facility]311 RE06/17/[address]: Dr. Mohan Adams DO : 1960 BED: 1 DIS: 06/18/2024 SPEC #: [id number] RECD: 06/17/24 13:59 STATUS: DENISE YRN #: [id number] DARWIN: 06/17/24 12:[address]: Mohan Adams DEPT: SURGICAL PATHOLOGY RECD BY: Cristian Huynh ENTERED: 06/17/24 14:24 SP TYPE: TOTAL KNEE OTHR DR: MD Dr. Luis Felipe Javier MD Tissues: Knee, NOS Procedures: Decalcification bone/plaque Surgery Specimen Level IV HEADER OPERATION: Total knee replacement robotic arm assist PRE-OP DIAGNOSIS: Grade IV osteoarthritis left knee, arthritis TISSUE SUBMITTED: Left knee bone and tissue MICROSCOPIC DIAGNOSIS Bone and soft tissue, left knee, total knee replacement/resection: Bone and cartilage showing degenerative changes consistent with degenerative joint disease. PW: 06/23/2024 MICROSCOPIC DESCRIPTION Slides are reviewed. GROSS DESCRIPTION Received is one container designated bone and soft tissue left knee. The specimen consists of multiple fragments of connelly-yellow bone measuring in aggregate 12.0 x 8.0 x 2.5 cm. No soft tissue is identified. A number of bony fragments contain articular surfaces consistent with tibial plateau and femoral condyle and displaying prominent osteophyte formation, eburnation and bone erosion. Procurement Professional sections are submitted in one cassette after decalcification. / 06/17/2024 TC:5 CPT: 29568, 33400
[2024-06-17] MEDS: Lactated Ringers 1,000 ML 100 ML IV (12:30)
[2024-06-17] MEDS: JPS (Morphine 10mg/ml) OPERA.SITE (12:54)
[2024-06-17] MEDS: TXA 1000mg in NS100 100ml (IVPB at Closure) 660 MG IV (13:09)
--- NOTE | 2024-06-17 14:17 | PCM.POST.ANE ---
Anesthesia: Postop Eval I Current Vital Signs Temperature: 97 F Pulse Rate: 69 Blood Pressure: 116/99 Respiratory Rate: 16 Pulse Ox: 99 Oxygen Delivery Method: Room Air Assessment Airway patent: Yes Spontaneous unlabored respirations: Yes Mental status: Awake and Calm nausea: No Vomiting: No Anesthesia Complication: No Fluid Hydration Crystalloid volume administer (ml): 1,500 Total IV fluid infused: 1,500 Progress Note Anesthesia document: Postop Eval 1 completed: Yes
--- NOTE | 2024-06-17 14:36 | POSTOPAN2_ITS ---
Anesthesia Postop Eval I Sum Postop Eval Completion status Anesthesia document: Postop Eval 1 completed: Yes Anesthesia Postop Eval I Summary Anesthesia Postop Eval I Summary: Anesthesia Postop Eval I: Assessment Summary Airway patent Yes 06/17/24 14:18 SPECIAL DELIVERY [email or web address] Spontaneous unlabored Yes 06/17/24 14:18 SPECIAL DELIVERY [email or web address] respirations Mental status Awake,Calm 06/17/24 14:18 SPECIAL DELIVERY [email or web address] nausea No 06/17/24 14:18 SPECIAL DELIVERY [email or web address] Vomiting No 06/17/24 14:18 SPECIAL DELIVERY [email or web address] Anesthesia Postop Eval I: Fluid Summary Crystalloid volume administer 1,500 06/17/24 14:18 SPECIAL DELIVERY [email or web address] (ml) Colloids volume administered ( ml) Blood Product volume administered (ml) Total IV fluid infused 1,500 06/17/24 14:18 SPECIAL DELIVERY [email or web address] Anesthesia Postop Eval I: Summary Notes Anesthesia Complication No 06/17/24 14:18 SPECIAL DELIVERY [email or web address] Anesthesia Complication Comment: Post-operative progress note Anesthesia: Postop Eval II Evaluation Mental status: Awake Pain Level: 0 nausea: No Vomiting: No
--- NOTE | 2024-06-17 14:36 | PCM.POSTANE2 ---
Anesthesia Postop Eval I Sum Postop Eval Completion status Anesthesia document: Postop Eval 1 completed: Yes Anesthesia Postop Eval I Summary Anesthesia Postop Eval I Summary: Anesthesia Postop Eval I: Assessment Summary Airway patent Yes 06/17/24 14:18 [email or web address] Spontaneous unlabored Yes 06/17/24 14:18 [email or web address] [email or web address] respirations Mental status Awake,Calm 06/17/24 14:18 [email or web address] nausea No 06/17/24 14:18 [email or web address] Vomiting No 06/17/24 14:18 [email or web address] Anesthesia Postop Eval I: Fluid Summary Crystalloid volume administer 1,500 06/17/24 14:18 [email or web address] (ml) Colloids volume administered ( ml) Blood Product volume administered (ml) Total IV fluid infused 1,500 06/17/24 14:18 [email or web address] Anesthesia Postop Eval I: Summary Notes Anesthesia Complication No 06/17/24 14:18 [email or web address] Anesthesia Complication Comment: Post-operative progress note Anesthesia: Postop Eval II Evaluation Mental status: Awake Pain Level: 0 nausea: No Vomiting: No
[2024-06-17] MEDS: oxyCODONE 5 MG Tablet PO ×3 (15:39→21:48)
--- NOTE | 2024-06-17 16:06 | OP.PCM_ITS ---
Operative Report (Standard) Operative Information Surgery/Procedure Performed: Left robotic arm assisted total knee arthroplasty Surgeon: Mohan Adams Date of Procedure: 06/17/24 Procedure Start Time: 12:00 Procedure Stop Time: 13:35 Pre-Operative Diagnosis: Left knee osteoarthritis Post-Operative Diagnosis: Left knee osteoarthritis Select all DRAINS/GRAFTS/IMPLANTS that apply: None Type of Anesthesia: Spinal Estimated Blood Loss: 20 cc Fluids Replaced: Per anesthesia record Specimen collected: Yes Description of specimen(s) removed: Left total knee bony resection Description of surgery: Preoperative diagnosis: Left knee primary osteoarthritis Postoperative diagnosis: Left knee primary osteoarthritis Procedure: Cemented left total knee arthroplasty Surgeon: Mohan Adams DO Sawdust Machine Operator: Arina Whitfield PA-C Anesthesia: Spinal with sedation, adductor canal block Anesthesiologist: Dr. Edwards Complications: None apparent Drains: None Estimated blood loss: 20 cc Urinary output: None recorded IV fluids: Per anesthesia record Specimens: Total knee resections Surgical implants: [place] triathlon X3 asymmetric patella size a29, triathlon cruciate retaining femoral #1, universal baseplate size #1, triathlon X3 tibial bearing insert CS size number 10 mm thickness Indications: This is a 63-year-old female seen in the outpatient setting diagnosed with left knee osteoarthritis with significant varus deformity. She failed nonoperative management with intra-articular corticosteroid injections, activity modification, bracing, [id number] analgesics. X-rays revealed grade 4 medial compartment changes. She also had significant patellofemoral arthritis. I recommended a left total knee arthroplasty. The risk, benefits, alternatives to procedure reviewed with patient at length and he agreed to proceed. Risks included but were not limited to bleeding, infection, loss of life or limb, need for additional surgery, persistent pain, intraoperative or postoperative fracture, instability, loosening of components, wound complications, stiffness, neurovascular injury, DVT or PE. Patient expressed understanding these risks and wished to proceed with surgery. Informed consent was obtained in the outpatient setting. Description of procedure: Patient was identified in the preoperative holding area by name, medical record number, and date of . Informed set was confirmed with the patient. The operative knee was marked with a surgical marker. At time of her procedure, patient brought to the operative suite and positioned supine a standard operating table. Anesthesia then administered a spinal anesthetic. She was then repositioned in the supine position with all bony prominences well-padded. We then placed a well-padded pneumatic tourniquet on the left upper thigh. The left upper extremity was brought across patient's chest throughout the procedure. We then prepped and draped the left lower extremity in a normal, sterile orthopedic fashion. We performed a timeout with all parties in attendance in agreement with the side, site, operation be performed. No concerns were voiced and would like to proceed with surgery. 2 g Ancef was administered prior to the incision by anesthesia staff as well as 1 g IV TXA. First I exsanguinated the left lower extremity with a Esmarch bandage. Tourniquet was inflated to 280 mmHg which remained inflated for approximately 65 minutes. Esmarch was removed. I planned a standard midline approach to the left knee approximately 15 cm in length. Skin was sharply incised with a 10 blade scalpel developing full-thickness layers down to the retinaculum. Layers were developed identifying the VMO. I then planned a standard medial parapatellar arthrotomy performed in flexion. The anterior horn of the medial meniscus was released. Hoffa's fat pad was then released. I then everted the patella in extension and brought the knee into 90 degrees of flexion. The anterior horn of the lateral meniscus was then released. The ACL was split in its mid substance with a 10 blade. We then brought the knee back into extension. I measured the outer diameter of the patella to be approximately 46 mm, a patellar reamer was then selected. I measured the thickness of the patella to be 28 mm. I then reamed the patella to a depth of approximately 15 mm. A protective baseplate was then placed on the patella. I then placed pins in the metaphyseal distal femur medial to lateral for the Azael arrays. In similar fashion, I made a 2 cm incision approximately a handsbreadth distal to the tibial tubercle along the medial aspect of the tibia, drilling 2 bicortical pins for the tibial array. The knee was brought into flexion. The patella was subluxed laterally but not everted. Medial lateral retractors were placed. We then utilized the [employer] software to confirm our planned surgical procedure and oriented with the patient's osseous anatomy. All checks with the [employer] system were confirmed. Patient had a significant fixed varus deformity after performing stress examination utilizing the [employer] software. We elected to place the tibial baseplate in approximately 1 degree of varus to allow for appropriate balancing. Sawblade was then brought in. I first started with the tibial cut, ensuring protection of the MCL and patellar tendon. A tibial wafer was then excised. I then proceeded to make the posterior femoral, anterior, anterior chamfer cuts with the same blade. Ligaments were protected with [employer] retractors. Sawblade was then exchanged to perform the distal femoral and posterior chamfer cuts. The robot was then removed from the surgical field. Remaining loose bone and meniscus was excised carefully. Posterior osteophytes were removed from the distal femur with a curved osteotome and rongeur. Trial components were then placed. Balance was excellent in both extension and 90 degrees flexion. No mid flexion instability was apparent. I then drilled for a size 29 patella. Patella was trialed. Tracking was excellent. We then marked for tibial baseplate. Distal femoral pegs were drilled. Tibial reaming was performed for more short post and keel was punched. Trials were removed. Periarticular block was administered. The wound was copiously irrigated with normal saline solution. Simplex cement was then mixed on the back table. Components were then cemented in place with excess cement being removed. Cement was allowed to cure with the components in full extension utilizing a 10 mm trial polyethylene component. While the cement was curing, Betadine solution was irrigated into the wound and the wound edges. After cement had cured fully, trial polyethylene was removed. Tourniquet was deflated. Hemostasis was excellent. An additional 1 g TXA was administered IV. I selected a size 9 mm polyethylene which was placed and impacted per locomotive operator recommendations. Final components appeared very well balanced with excellent range of motion. There is no significant remaining flexion contracture. The wound was copiously irrigated with normal saline solution. Capsule was closed watertight with #1 strata fix barbed suture. Deeper report muscle layer was reapproximated with 0 Vicryl suture. Dermis was reapproximated buried interrupted 2-0 Vicryl suture. Skin was finally reapproximated niyah. Patient tolerated the procedure well without apparent complication. She was safely awakened in the operative suite, transferred to his hospital bed and subsequently to PACU in stable condition. Need for skilled assistant professor of english: Arina Whitfield PA-C was critical to the outcome of the case. During the course of the procedure the physician assistant professor of english played a vital role. Her intimate knowledge of my steps in the procedure aided in safe and expedient completion of the procedure. The PA played a vital role in positioning particularly in obtaining the appropriate positioning. The PA was also vital in the retraction of soft tissues during the exposure and projecting vital structures. The PA was also vital and protecting soft tissues during times of bony cuts. She also played a vital role in closure with my direct supervision. The PA was also important during reduction and dislocation of the joint and trials intraoperatively. Post Operative Plan: Patient will be placed in observation overnight. Plan for discharge home postoperative day #1 Weightbearing: Range of motion and weightbearing as tolerated left lower extremity. Antibiotics: Ancef 2 g every 8 hours x 3 doses DVT Prophylaxis: Multimodal with aspirin 81 mg twice daily, SCDs, HILLARY hose, e natalia mobilization Mazariegos: None Dressing: Maintain silver dressing x7 days X-Rays: 2-week x-rays in the office. Follow-up: 2 weeks in my office for staple removal Surgical Findings: Severe tricompartmental left knee osteoarthritic changes Windows Technical Specialist bioprocess engineer: Yes Sawdust Machine Operator: Arina Whitfield Tasks completed by director of first impressions: Opening, Closing, Dissecting tissue, Implanting device, Hemostasis: Electrocautery and Retracting Complications Complications: No Admit VTE Documentation VTE Present on Admission: No VTE Mechan Device Prophylaxis: SCD's and Thigh High HILLARY Hose VTE Pharm Prophylaxis ordered?: Yes
[2024-06-17] MEDS: Acyclovir 200 MG Capsule 400 MG PO (18:15)
[2024-06-17] MEDS: 0.9% Saline Lock 10 ML Syringe IV ×2 (20:15→21:50)
[2024-06-17] MEDS: Cefazolin 1 GM/50 ML BAG IV (20:23)
[2024-06-17] MEDS: 0.9% Normal Saline (500mL Bag) 500 ML 15 ML IV (20:30)
[2024-06-17] MEDS: Senna/Docusate Sodium 1 Tablet 2 TABLET PO (21:50)
[2024-06-17] MEDS: Aspirin 81 MG TAB.CHEW PO (21:50)
[2024-06-17] MEDS: MELATONIN 3 MG TABLET PO (22:30)
[2024-06-18 00:41] VITALS: BP 106/47; PULSE 58; RESP 16; TEMP 36.6; O2SAT 95
[2024-06-18] MEDS: Cefazolin 1 GM/50 ML BAG IV (04:03)
[2024-06-18] MEDS: 0.9% Saline Lock 10 ML Syringe IV ×2 (04:03→05:18)
[2024-06-18] MEDS: oxyCODONE 5 MG Tablet PO ×3 (04:30→14:24)
[2024-06-18] MEDS: Acetaminophen 500 MG Tablet 1000 MG PO ×2 (05:17→13:21)
[2024-06-18 06:41] LABS: Anion Gap 5 (5-15); BUN 21 mg/dL (7-18); BUN/Creat Ratio 30.3 RATIO (10-20); Calcium,Total 9.1 mg/dL (8.5-10.1); Chloride 105 mmol/L (98-107); Creatinine, Serum 0.69 mg/dL (0.55-1.02); EST Glomerular Filtration Rate 91 mL/min (>60); Est Glom Filt Rate - Afr Amer 110 mL/min (>60); Glucose 132 mg/dL (74-106); Potassium 3.9 mmol/L (3.5-5.1); Sodium Level 138 mmol/L (136-145)
[2024-06-18 06:42] LABS: Hematocrit 35.6 % (37-47); Hemoglobin 10.6 g/dL (12.0-15.0); Mean Corp Hgb Conc 29.8 g/dL (32-36); Mean Corpuscular Hgb 28.6 pg (27.0-32.0); Mean Platelet Vol. 10.5 fl (6.2-12.0); Platelet Count 355 K/mm3 (150-450); RBC Distribution Width CV 14.1 % (11.6-14.6); RBC Distribution Width SD 49.6 fl (35.1-43.9); Red Blood Count 3.71 M/mm3 (4.2-5.4); White Blood Count 12.5 K/mm3 (4.4-11.0)
[2024-06-18 10:00] VITALS: BP 110/60; PULSE 73; RESP 16; TEMP 36.4; O2SAT 98
--- NOTE | 2024-06-18 10:20 | CASEMGMT ---
RN YADIRA photo optics technician CM to room to meet with patient for initial transition planning/care coordination assessment. ALFRED MAY introduced self and role at [facility], pt voices understanding. Pt is A&O, sitting up in the chair in room. Care providers, pharmacy, and demographics verified. Admitting dx: LTK Strata: 1 PCP: Dr Erwin Patel Specialists: Dr Adams Preferred Pharmacy: [facility]. Would like to use [facility] @ discharge. Insurance: [employer] Prescription Benefit:Yes LNOK: [place]- Living Arrangements: Pt lives with her in a single story home with a basement and two steps to enter. Independent w/ADL's and IADL's. Transportation: Self, , Friends DME: [employer]. Raised toilet seat with grab bars. Shower chair. Cane. HHC/SNF: Denies hx of either. Pt went to [facility] for OP therapy in February after K RTK. Pt would like to go to [facility] again for therapy. She denies having other discharge/home-going needs/concerns. Plan: Home w/OP therapy @ [facility]. Appt scheduled for 06/21 @ 3 PM. Pt aware. Ari DELEON RN, CM
[2024-06-18 10:24] VITALS: PULSE 78
[2024-06-18] MEDS: Aspirin 81 MG TAB.CHEW PO (10:24)
[2024-06-18] MEDS: Famotidine 20 MG Tablet 40 MG PO (10:24)
[2024-06-18] MEDS: Senna/Docusate Sodium 1 Tablet 2 TABLET PO (10:24)
[2024-06-18] MEDS: Metoprolol(XL)Succ 50 MG Tablet PO (10:24)
[2024-06-18] MEDS: Acyclovir 200 MG Capsule 400 MG PO (10:28)
--- NOTE | 2024-06-18 11:57 | DS.PCM_ITS ---
Providers Date of Admission: 06/17/24 Date of Discharge: 06/18/24 Primary Care Physician: Dr. Casandra Parker MD Reason For Visit: Total Knee Replacement Robotic Arm Assist Diagnosis Discharge Diagnosis (1) S/P total knee arthroplasty: Status: Acute Code(s): Z96.659 - Presence of unspecified artificial knee joint Plan Patient is postop day 1 status post left total knee arthroplasty with Dr. Adams 06/17/2024 1. Will continue PT today. Weightbearing as tolerated 2. plan for discharge this afternoon following PT 3. Patient will follow up for post op appointment as previously scheduled 2 weeks postoperatively with post orthopedics 4. Patient has outpatient PT appointment on as previously scheduled in the next day or 2 5. WBC 12.5 acute reactive leukocytosis: secondary to pre operative decadron. no acute systemic signs of infection. will monitor, and likely self resolve. 6. H/H 10 point/35.6: post operative anemia secondary to acute blood loss intraoperatively. Patient is asymptomatic at this time. No intraoperative complications. will continue to monitor. no acute interventions. 7. DVT prophylaxis : Aspirin 81 mg twice daily x 4 weeks, and movement intact 8. Pain control: patient instructed to take tylenol 500mg 2 tablets TID. and oxycodone 1-2 tablets every 4-6 hours only as needed for pain control. 9. Patient also given a prescription of pepcid for ulcer prophylaxis. Prescription of doxycycline 100 mg twice daily x 14 days postop for prophylaxis. 10. ok to remove post op dressing. post op day 7 Medications at Discharge Home Medications valacyclovir 500 mg tablet 500 mg PO DAILY 12/12/23 metoprolol succinate 50 mg tablet,extended release 24 hr (Toprol XL) 50 mg PO DAILY #60 tabs 12/17/23 acetaminophen 500 mg tablet 1,000 mg PO Q8 06/17/24 aspirin 81 mg chewable tablet 81 mg PO BID #60 tabs 06/18/24 doxycycline hyclate 100 mg tablet 100 mg PO BID 14 days #28 tabs 06/18/24 famotidine 20 mg tablet 40 mg (2 x 20 mg) PO DAILY #30 tabs 06/18/24 meloxicam 7.5 mg tablet 7.5 mg PO BID #60 tabs 06/18/24 oxycodone 5 mg tablet 5 - 10 mg (1 - 2 x 5 mg) PO Q4H PRN PRN Pain Score 4-10 7 days #60 tabs 06/18/24 sennosides 8.6 mg-docusate sodium 50 mg tablet (Stimulant Laxative Plus) 2 tab PO BID #14 tabs 06/18/24 Hospital Course Operations total knee replacement (Left knee) Physical Exam Narrative Patient resting comfortably in bed No signs of acute distress Satting well on room air Limb is warm to touch, Sensation intact throughout entire lower extremity, including saphenous, sural, superficial and deep peroneal, and tibial distribution. DP/PT pulses bounding. Dorsiflexion plantarflexion strength 5/5 Dressing clear dry intact Calf nontender to palpation, no erythema, no edema. Negative Homans Weight / BMI Weight Weight: 99.79 kg Body Mass Index (BMI) 47.6 ABG / Lab / Microbiology Data 06/18/24 05:35 06/18/24 05:35 Laboratory: Laboratory Results - last 24 hr 06/18/24 05:35: WBC 12.5 H, RBC 3.71 L, Hgb 10.6 L, Hct 35.6 L, MCV 96.0, MCH 28.6, MCHC 29.8 L, RDW Std Deviation 49.6 H, RDW Coeff of Chao 14.1, Plt Count 355, MPV 10.5, Sodium 138, Potassium 3.9, Chloride 105, Carbon Dioxide 28.0, Anion Gap 5, BUN 21 H, Creatinine 0.69, Estim Creat Clear Calc 89.70, Est GFR (MDRD) Af Amer 110, Est GFR (MDRD) Non-Af 91, BUN/Creatinine Ratio 30.3 H, G lucose 132 H, Calcium 9.1 Microbiology: Microbiology 05/31/24 12:47 Swab (Method) Nasal Screen MRSA/MSSA - Final D/C Instructions Discharge Diet: No restrictions Discharge Activity: Return to Normal Activity Weight Bearing Status: Weight bearing as tolerated Call your doctor if your incision/area has: Continuous Slow Oozing, Sudden Increased Bleeding, Increased Pain/ Swelling, Increased Redness, Foul Smelling Discharge and Swelling at the incision site Call your doctor if you observe: Fever of 101 or Higher, Inability to have a bowel movement, Shortness of breath, Chest pain, Calf discomfort and Uncontrolled pain Remove Dressing in: 1 week Cleanse incision/area with: Soap & Water and Keep Dressing Clean & Dry Additional Instructions: Patient is to take additional antibiotics postoperatively for 2 weeks When: With post orthopedics as previously scheduled Meaningful Use Info Meaningful Use Meaningful Use Diagnoses (Choose all that apply): None applicable Ischemic Stroke Statin Dosing Therapy Reference: STATIN DOSE THERAPY REFERENCE: * Patients > 75 years receive moderate or high dose statin therapy. * Patients 75 years or YOUNGER should receive HIGH intensity statin dose unless contraindicated. You will be required to document reason for non-treatment if statin daily dose does not meet guidelines. HIGH DOSE STATIN THERAPY DAILY Atorvastatin > than or = to 40 mg Rosuvastatin > than or = to 20 mg Amlodipine + Atorvastatin > than or = to 2.5/40 mg Ezetimibe + Simvastatin 10/80 mg Simvastatin 80mg Discharge Plan Admission Admit Date/Time: 06/17/24 14:05 Attending Provider: Mohan Adams Primary Care Provider: Casandra Parker Consulting Providers: Luis Felipe Retana Discharge Orders/Prescriptions Prescriptions: New aspirin 81 mg Tablet,Chewable 81 mg PO BID Qty: 60 0RF famotidine 20 mg Tablet 40 mg PO DAILY Qty: 30 0RF sennosides-docusate sodium [Stimulant Laxative Plus] 8.6-50 mg Tablet 2 tab PO BID Qty: 14 0RF oxycodone 5 mg Tablet 5 - 10 mg PO Q4H PRN PRN (Reason: Pain Score 4-10) 7 Days Qty: 60 0RF meloxicam 7.5 mg Tablet 7.5 mg PO BID Qty: 60 0RF doxycycline hyclate 100 mg tablet 100 mg PO BID 14 Days Qty: 28 0RF Continued valacyclovir 500 mg tablet 500 mg PO DAILY metoprolol succinate [Toprol XL] 50 mg tablet extended release 24 hr 50 mg PO DAILY Qty: 60 4RF acetaminophen 500 mg tablet 1,000 mg PO Q8 Discontinued Advil 100 mg tablet 200 mg PO PRN Referrals / Follow Up: Casandra Parker MD [Primary Care Provider] - Disposition Disposition (needs filled in before D/C Order can be placed): Home, Self Care
[2024-06-18 12:38] VITALS: O2SAT 98
== END 2024-06-18 14:40 | disposition home or self-care (01) ==
LOC: SDC 16:36 → MS3 16:36
PROVIDERS: Anesthesiology; Admitting Provider Student in an Organized Health Care Education/Training Program; PCP Family Medicine; Referring Provider Student in an Organized Health Care Education/Training Program; Visit Provider Student in an Organized Health Care Education/Training Program
PROC: 0SRD0JZ Replacement of Left Knee Joint with Synthetic Substitute, Open Approach (ICD-10-PCS; CPT 27447; principal; 2024-06-17 11:30)
DX: M17.12 Unilateral primary osteoarthritis, left knee (principal); M21.162 Varus deformity, not elsewhere classified, left knee; Z79.82 Long term (current) use of aspirin; Z79.899 Other long term (current) drug therapy; R94.31 Abnormal electrocardiogram [ECG] [EKG]; I10 Essential (primary) hypertension
CPT/HCPCS: 27447; 01402; 64447; S2900; 36415; 80048; 82962; 83735; 85025; 85027; 87081; 88305; 88311; 94668; 96365; 96366; 96375; 97162; 97166; 99221; C1776; J7040; J7120; A4216; G0378; J2405; J3475

== ENCOUNTER → 2024-06-22 | Outpatient (CLI) | payer BC, SELFPAY ==
--- NOTE | 2024-06-22 08:33 | VDLE_ITS ---
Reason For Study: Left leg pain RIGHT LEFT CFV is compressible, spontaneous, phasic, GSV is normal. competent and demonstrates normal CFV is compressible, spontaneous, phasic, augmentation. competent, and demonstrates normal Procedure augmentation. This is a venous duplex using B-mode, color FV is compressible, spontaneous, phasic, flow and spectral Doppler. competent and demonstrates normal Exam performed in department. augmentation. A preliminary report was called and/or faxed POP V is compressible, spontaneous, phasic, to Dr. Adams. competent and demonstrates normal augmentation. T/P Trunk is compressible. PTV is compressible. LT PerV is compressible. Nonvascularized structure noted in the left popliteal fossa that measures 0.67 x 2.20 x 3.02 cm. VL/Venous Duplex US, Unilateral Interpretation Summary Deep veins of the left lower extremity are patent and compressible segmentally. There is no evidence of left lower extremity deep vein thrombosis. Valvular competence appears intac t within the proximal deep venous system on the left . The left great saphenous vein appears patent a nd compressible segmentally. A non-vascular, hypoechoic structure is noted in the left poplitea l space, measuring 0.67 cm x 2.20 cm x 3.02 cm. This probably represents a popliteal cyst. Clinica l correlation is advised. The right common femoral vein is patent and compressible . Ordering Physician: Mohan Adams Referring Physician: Casandra Parker M.D. Performed By: Candi Swain RVT
== END | disposition home or self-care (01) ==
LOC: CVS 08:30
PROVIDERS: PCP Family Medicine; Referring Provider Student in an Organized Health Care Education/Training Program; Visit Provider Student in an Organized Health Care Education/Training Program
DX: M79.662 Pain in left lower leg (principal)
CPT/HCPCS: 93971

== ENCOUNTER → 2024-12-29 | Outpatient (CLI) | payer BC, SELFPAY ==
--- NOTE | 2024-12-29 14:59 | BI_ITS ---
EXAM: SCRN MAMM (CAD)W/ELIZABETH BILAT 12/29/2024 CLINICAL HISTORY: F, Age 64 y/o , SCREENING TECHNIQUE: Bilateral screening digital breast tomosynthesis with 2D and 3D images. Computer aided detection. COMPARISON: Prior exam(s) dated 06/11/2023. FINDINGS: TISSUE DENSITY: The breast tissue is composed of scattered area of fibroglandular density. Bilateral Breast Mammographic Findings: No significant masses, calcifications or other abnormalities are identified. BI/SCRN MAMM (CAD)W/ELIZABETH BILAT IMPRESSION: Right Breast: BIRADS 1 NEGATIVE. Left Breast: BIRADS 1 NEGATIVE. OVERALL FINAL ASSESSMENT: BIRADS 1 NEGATIVE. RECOMMENDATION: Routine annual follow-up in 1 Year A letter with findings and recommendations will be mailed to the patient. Reading Location: [id number]
== END | disposition home or self-care (01) ==
LOC: OPBI 14:57
PROVIDERS: PCP Family Medicine; Referring Provider Obstetrics & Gynecology; Visit Provider Obstetrics & Gynecology
DX: Z12.31 Encounter for screening mammogram for malignant neoplasm of breast (principal)
CPT/HCPCS: 77063; 77067